=== PATIENT | male | born 1975 | race Caucasian/White ===

== ENCOUNTER 2019-06-19 12:51 | Inpatient (IN) | payer MEDICAID, OTHER ==
[~2019-06-19] VITALS: Ht 154.9 cm; Wt 81.6 kg
[~2019-06-19 12:51] MED LIST: FOLI-49 PO; FURO40TA4 PO; LEVO500T48 PO; MULTI PO; PANT40TA3 PO; PENT400T9 PO; POTA8CAP PO; SPIR50TA PO; THIA100T56 PO
[2019-06-19 12:57] VITALS: Ht 154.9 cm; Wt 81.6 kg
[2019-06-19] MEDS ORDERED: CEFTRIAXONE 1 GM/50 ML (PMX) 50 ML IVPB ONE (13:30)
[2019-06-19] MEDS ORDERED: FUROSEMIDE 20 MG INJ IV ONE (13:30)
[2019-06-19] MEDS ORDERED: LORAZEPAM 2 MG INJ IV ONE (13:30)
[2019-06-19] MEDS ORDERED: IBUPROFEN 600 MG TAB PO ONE (13:30)
--- NOTE | 2019-06-19 14:01 | ERD ---
ER Documentation Chief Complaint Chief Complaint abd distention/pain with alee leg edema x 1 wk; noted yellowish skin HPI This is a 43-year-old man with history of chronic alcoholism brought in by family member for complaints of 1 month increasing lower leg swelling, abdominal distention, and about 2 to 3 days of tactile fevers. He also noticed yellow discoloration of sclera for the last few days. Patient denies blood per rectum or melena, no hematemesis, no complaints of chest pain or shortness of breath. Patient denies sore throat or URI symptoms. Due to the abdominal distention he complains of diffuse abdominal cramping for about 1 month. ROS All systems reviewed and are negative except as per history of present illness. Medications Home Meds No Active Prescriptions or Reported Meds Allergies Allergies: Coded Allergies: No Known Allergy (Unverified , 06/19/19) PMhx/Soc Alcoholism History of Surgery: Yes (Api) Anesthesia Reaction: No Hx Neurological Disorder: No Hx Respiratory Disorders: No Hx Cardiac Disorders: No Hx Psychiatric Problems: No Hx Miscellaneous Medical Probl: Yes (Alcoholism, esophageal varices) Hx Alcohol Use: Yes Hx Substance Use: No Hx Tobacco Use: No Smoking Status: Never smoker FmHx Family History: No diabetes Physical Exam Vitals Vital Signs Date Temp Pulse Resp B/P (MAP) Pulse Ox O2 O2 Flow FiO2 Time Delivery Rate 06/19/19 100.2 131 20 149/92 100 12:57 (111) Physical Exam Const: Well-developed well-nourished man, appears to have mild withdrawals, febrile, otherwise nontoxic in appearance HEENT: Positive jaundice and icterus, no Kernig sign, no cervical spine deformity, pupils equal round reactive to light, normocephalic atraumatic Resp: Clear to auscultation bilaterally Cardio: Tachycardic and regular Abd: Protuberant distended abdomen, nontender, positive hepatomegaly, no guarding or rigidity Ext: No cyanosis, 3+ pitting edema in the lower extremities bilaterally, calves symmetrical Neur: Awake and alert x3, no focal deficits or facial asymmetry, mild upper extremity tremor, gait normal Psych: Normal Mood and Affect Result Diagram: 06/19/19 1339 06/19/19 1339 Results 24 hrs Laboratory Tests Test 06/19/19 13:39 06/19/19 13:46 06/19/19 13:47 White Blood Count 4.7 10^3/ul Red Blood Count 2.79 10^6/ul Hemoglobin 5.9 g/dl Hematocrit 21.5 % Mean Corpuscular Volume 77.1 fl Mean Corpuscular Hemoglobin 21.1 pg Mean Corpuscular 27.4 g/dl Hemoglobin Concent Red Cell Distribution Width 20.6 % Platelet Count 90 10^3/UL Mean Platelet Volume 10.4 fl Immature Granulocytes % 0.600 % Neutrophils % % Segmented Neutrophils % (Manual) 79 % Lymphocytes % % Lymphocytes % (Manual) 11 % Monocytes % % Monocytes % (Manual) 6 % Eosinophils % % Eosinophils % (Manual) 4 % Basophils % % Nucleated Red Blood Cells % 0.0 /100WBC Immature Granulocytes # 0.030 10^3/ul Neutrophils # 10^3/ul Lymphocytes (Manual) 0.5 10^3/ul Lymphocytes # 10^3/ul Monocytes # 10^3/ul Monocytes # (Manual) 0.2 10^3/ul Eosinophils # 10^3/ul Basophils # 10^3/ul Nucleated Red Blood Cells # 10^3/ul Platelet Estimate DECREASED Polychromasia 2+ Hypochromasia 1+ Poikilocytosis 1+ Anisocytosis 1+ Microcytosis 1+ Ovalocytes 1+ Prothrombin Time 25.0 Sec Prothrombin Time Ratio 2.0 INR International 2.26 Normalized Ratio Activated Partial Thromboplast 40.8 Sec Time Sodium Level 137 mmol/L Potassium Level 3.5 mmol/L Chloride Level 108 mmol/L Carbon Dioxide Level 22 mmol/L Anion Gap 7 Blood Urea Nitrogen 8 mg/dl Creatinine 0.64 mg/dl Est Glomerular Filtrat > 60 mL/min Rate mL/min Glucose Level 135 mg/dl Calcium Level 7.4 mg/dl Total Bilirubin 1.7 mg/dl Direct Bilirubin 0.00 mg/dl Indirect Bilirubin 1.7 mg/dl Aspartate Amino 72 IU/L Transf (AST/SGOT) Alanine 43 IU/L Aminotransferase (ALT/SGPT) Alkaline Phosphatase 151 IU/L Ammonia 35 umol/l Troponin I 0.015 ng/ml B-Type Natriuretic Peptide 159 PG/ML Total Protein 6.9 g/dl Albumin 2.2 g/dl Globulin 4.70 g/dl Albumin/Globulin Ratio 0.46 Lipase 287 U/L Ethyl Alcohol Level < 10.0 mg/dl Urine Color SHERRIE Urine Clarity SLIGHTLY CLOUDY Urine pH 5.0 Urine Specific [place] 1.030 Urine Ketones TRACE mg/dL Urine Nitrite NEGATIVE mg/dL Urine Bilirubin 1+ mg/dL Urine Urobilinogen 2+ mg/dL Urine Leukocyte Esterase NEGATIVE Praful/ul Urine Microscopic RBC 15 /HPF Urine Microscopic WBC 5 /HPF Urine Squamous Epithelial Cells FEW /HPF Urine Bacteria FEW /HPF Urine Mucus MANY /HPF Urine Hemoglobin 2+ mg/dL Urine Glucose NEGATIVE mg/dL Urine Total Protein 2+ mg/dl POC Venous Lactate 3.0 mmol/L Current Medications Medications Dose Sig/Mary Start Time Status Last (Trade) Ordered Route PRN Stop Time Admin Dose Reason Admin Lorazepam 0.5 mg ONCE ONCE 06/19/19 DC 06/19/19 (Ativan) IV 13:30 13:43 06/19/19 13:31 Ibuprofen 600 mg ONCE ONCE 06/19/19 DC 06/19/19 (Motrin) PO 13:30 13:43 06/19/19 13:31 Ceftriaxone 50 ml @ ONCE ONCE 06/19/19 DC 06/19/19 Sodium 100 mls/hr IVPB 13:30 13:43 06/19/19 13:59 Furosemide 20 mg ONCE ONCE 06/19/19 DC 06/19/19 (Lasix) IV 13:30 13:43 06/19/19 13:31 Procedures/MDM IV line was established patient was placed on packer sausage and wiener rhythm strip revealed a narrow complex tachycardia at 120 bpm with upright P and T waves. Patient was febrile, blood and urine cultures have been ordered results are pending I will follow-up. I administered Lasix 20 mg IV, ceftriaxone 1 g IV, lorazepam 0.5 mg IV x1, and ibuprofen 600 mg p.o. Chest X-ray 1V Interpreted by me: Soft Tissue: No acute abnormalities Bones: No acute abnormalities Mediastinum/Cardiac Silhouette/Lungs: No acute abnormalities EKG performed, read by me revealed a sinus tachycardia at 113 bpm, normal axis, narrow QRS complex, no concerning ST elevations or depressions noted CBC reveals pancytopenia with severe anemia and a hemoglobin of 5.9, electrolytes are unremarkable, liver function tests revealed mild elevation in bilirubin, troponin negative, urinalysis negative for infection, ammonia level elevated at 35 I ordered transfusion 2 units PRBC IV over 2 hours. Critical Care: Time: 42 minutes, this was time separate from other billable procedures. Treatments/Evaluations: Close monitoring and treatment of unstable vital signs, cardiorespiratory, and neurologic status, while maintaining tight balance of fluid, respiratory, and cardiac interventions. Lactic acid elevated at 3.0 Patient's infectious symptoms have not stabilized and the patient is at risk of rapid decompensation. The patient will be admitted for careful hydration, antibiotic therapy, and infectious source control. SEVERE SEPSIS CRITERIA: Infectious source: Possible SBP End organ damage indicated by: [Lactate > 2.0 mmol/L INR > 1.5 Plt < 100 SEPSIS MANAGEMENT Time of recognition of sepsis: Upon arrival. Time of recognition of severe sepsis: No severe sepsis at this time. Time of recognition of septic shock: No septic shock at this time. 3 HOUR BUNDLE Blood cultures x 2 before broad-spectrum antibiotics: Yes 30 ml/kg NS bolus not given because patient is fluid overloaded Initial lactate 3.0 Repeat lactate pending SEPTIC SHOCK ASSESSMENT: No lactic acid > 4.0 No persistent hypotension (SBP < 90 or 40 mmHg drop, MAP < 65) despite 30 mL/kg IV fluid bolus VOLUME REASSESSMENT FOR SEPTIC SHOCK: Reevaluation Time: 1440 Temp 98.6, pulse 110 bpm, BP 134/86, oxygen saturation 100%, respiratory rate 18 breaths/min and normal Heart tachycardic and regular Lungs no crackles Skin warm & dry Cap Refill less than 2 seconds Peripheral pulses radially present PERSISTENT HYPOTENSION TREATMENT: Comfort care no Central line not Required Vasopressor started not required I considered further perfusion assessment with CVP measurement, SCVO2, bedside ultrasound volume assessment, passive leg raise, trial of further fluid bolus. And proceeded with 30 ml/kg fluid bolus of NSS, broad spectrum antibiotics, and admission. CRITICAL CARE: Critical care time 43 minutes, this was time separate from other billable procedures. Emergent fluid management while maintaining close respiratory support. Provision of immediate and broad-spectrum antibiotic therapy. Simultaneous assessment for possible sources in order to direct targeted therapy. Consideration for invasive and chemical support to prevent cardiopulmonary collapse. Critical care time is independent of procedures performed. Accepting Care Team: Current data and ongoing care discussed. Time: Time of admission Primary Provider: Hospitalist Consulting: GI Outstanding Data: none Departure Diagnosis: Primary Impression: Pancytopenia Additional Impressions: Symptomatic anemia Alcoholism Cirrhosis Hepatic cirrhosis type: alcoholic cirrhosis Ascites presence: with ascites Qualified Codes: K70.31 - Alcoholic cirrhosis of liver with ascites Sepsis Sepsis type: sepsis due to unspecified organism Qualified Codes: A41.9 - Sepsis, unspecified organism Ascites Ascites type: due to alcoholic cirrhosis Qualified Codes: K70.31 - Alcoholic cirrhosis of liver with ascites Fluid overload Hypervolemia type: unspecified Qualified Codes: E87.70 - Fluid overload, unspecified Hyperammonemia Condition: BRAVO Tyson MD Jun 19, 2019 14:01
[2019-06-19] MEDS ORDERED: SOD CHLORIDE 0.9% 250 ML IV* ONE ×3 (16:06→22:02)
[2019-06-19] MEDS ORDERED: SOD CHLORIDE 0.9% 1,000 ML IV SCH (16:15)
[2019-06-19] MEDS ORDERED: HYDROCODONE/APAP (5/325) TAB PO PRN (16:30)
[2019-06-19] MEDS ORDERED: morphine 2 MG INJ IV PRN (16:30)
[2019-06-19] MEDS ORDERED: NACL 0.9% 3 ML SYG IV SCH (16:30)
[2019-06-19] MEDS ORDERED: ONDANSETRON 4 MG INJ IV PRN (16:30)
[2019-06-19] MEDS ORDERED: BISACODYL 10 MG SUPP PR PRN (16:30)
[2019-06-19] MEDS ORDERED: DOCUSATE SODIUM 100 MG CAP PO PRN (16:30)
[2019-06-19] MEDS ORDERED: BISACODYL (EC) 5 MG TAB PO PRN (16:30)
--- NOTE | 2019-06-19 20:11 | HP ---
Date/Time of Note Date/Time of Note DATE: 06/19/19 TIME: 20:06 Assessment/Plan VTE Prophylaxis SCD contraindicated: low risk/ambulating Pharmacological prophylaxis: NA/contraindicated Pharm contraindication: low risk/ambulating Lines/Catheters IV Catheter Type (from Nrsg): Saline Lock Assessment/Plan Hospital Course CC fatigue SENECA progressive dyspnea, fatigue, edema. drinking beer. moved here from recently. no medical care. denies fever, abd pain, or active gi bleed. occ diarrhea. no cough. ER vss/ st PMH etoh varices? depression etoh liver dz PSH none FH tbd SH etoh; no tobacco/ drugs Meds none ROS neuro- 99..; no he cor chest pain positive dyspnea edema pul cough no chest pain gi no vomiting or abdominal pain positive distention gu no abdominal pain dysuria ms fatigue edema No fever psy stable mood without any significant agitation anxiety depression heme no hematochezia melena hematuria con no recent fever or chills Weight? endo no previous diabetes thyroid dysfunction or dyslipidemia PE pallor icterus? no ln, droop reg s1s2 tachy ctab bs dimin; nt; distended edema A/P 1. Anasarca, likely due to progressive liver disease/acute liver failure; albumin and Lasix? 2. Sympt Anemia 3. Etoh 4. Etoh liver dz 5. Coagulopathy 6. Depression? 7. SIRS 8. Portal Htn Result Diagram: 06/19/19 1339 06/19/19 1339 Results 24hrs Laboratory Tests Test 06/19/19 13:39 06/19/19 13:46 06/19/19 13:47 06/19/19 18:36 White Blood Count 4.7 L Red Blood Count 2.79 L Hemoglobin 5.9 *L Hematocrit 21.5 L Mean Corpuscular 77.1 L Volume Mean Corpuscular 21.1 L Hemoglobin Mean Corpuscular 27.4 L Hemoglobin Concen t Red Cell 20.6 H Distribution Width Platelet Count 90 L Mean Platelet 10.4 Volume Immature 0.600 H Granulocytes % Neutrophils % Segmented 79 H Neutrophils % (Manual) Lymphocytes % Lymphocytes % 11 L (Manual) Monocytes % Monocytes % 6 (Manual) Eosinophils % Eosinophils % 4 (Manual) Basophils % Nucleated Red 0.0 Blood Cells % Immature 0.030 Granulocytes # Neutrophils # Lymphocytes 0.5 L (Manual) Lymphocytes # Monocytes # Monocytes # 0.2 L (Manual) Eosinophils # Basophils # Nucleated Red Blood Cells # Platelet Estimate DECREASED Polychromasia 2+ Hypochromasia 1+ Poikilocytosis 1+ Anisocytosis 1+ Microcytosis 1+ Ovalocytes 1+ Prothrombin Time 25.0 H Prothrombin Time 2.0 Ratio INR International 2.26 Normalized Ratio Activated 40.8 H Partial Thrombopl ast Time Sodium Level 137 Potassium Level 3.5 Chloride Level 108 Carbon Dioxide 22 Level Anion Gap 7 Blood Urea 8 Nitrogen Creatinine 0.64 Est Glomerular > 60 Filtrat Rate mL/min Glucose Level 135 Calcium Level 7.4 L Total Bilirubin 1.7 H Direct Bilirubin 0.00 Indirect 1.7 H Bilirubin Aspartate Amino 72 H Transf (AST/SGOT) Alanine 43 Aminotransferase (ALT/SGPT) Alkaline 151 H Phosphatase Ammonia 35 H Troponin I 0.015 B-Type 159 H Natriuretic Peptide Total Protein 6.9 Albumin 2.2 L Globulin 4.70 H Albumin/Globulin 0.46 Ratio Lipase 287 Ethyl Alcohol < 10.0 H Level Urine Color SHERRIE Urine Clarity SLIGHTLY CLOUDY A Urine pH 5.0 Urine Specific 1.030 [place] Urine Ketones TRACE A Urine Nitrite NEGATIVE Urine Bilirubin 1+ H Urine 2+ H Urobilinogen Urine Leukocyte NEGATIVE Esterase Urine Microscopic 15 H RBC Urine Microscopic 5 WBC Urine Squamous FEW Epithelial Cells Urine Bacteria FEW A Urine Mucus MANY A Urine Hemoglobin 2+ H Urine Glucose NEGATIVE Urine Total 2+ H Protein POC Venous 3.0 *H Lactate Lactic Acid Level 1.8 HPI/ROS Admit Date/Time Admit Date/Time PMH/Family/Social Past Medical History Medications Current Medications Sodium Chloride 1,000 ml @ 75 mls/hr [id number] IV ; Start 06/19/19 at 16:15 IV Flush (NS 3 ml) 3 ml PER PROTOCOL IV ; Start 06/19/19 at 16:30 Ondansetron HCl (Zofran Inj) 4 mg Q6H PRN IV NAUSEA/VOMITING; Start 06/19/19 at 16:30 Acetaminophen (Tylenol Tab) 650 mg Q6H PRN PO .PAIN 1-3 OR TEMP; Start 06/19/19 at 16:30 Acetaminophen/ Hydrocodone Bitart ([place] (5/325)) 1 tab Q6H PRN PO .MOD PAIN 4- 6; Start 06/19/19 at 16:30 Morphine Sulfate (morphine) 2 mg Q4H PRN IV .SEVERE PAIN 7-10; Start 06/19/19 at 16:30 Docusate Sodium (Colace) 100 mg Q12H PRN PO .CONSTIPATION; Start 06/19/19 at 16:30 Bisacodyl (Dulcolax) 5 mg DAILY PRN PO .CONSTIPATION; Start 06/19/19 at 16:30 Bisacodyl (Dulcolax Supp) 10 mg DAILY PRN [place] .CONSTIPATION; Start 06/19/19 at 16:30 Pantoprazole (Protonix Iv) 40 mg DAILY@06 IV ; Start 06/20/19 at 06:00 Coded Allergies: No Known Allergy (Unverified , 06/19/19) Social History Smoking Status: Never smoker Exam/Review of Systems Vital Signs Vitals Vital Signs Date Temp Pulse Resp B/P (MAP) Pulse Ox O2 O2 Flow FiO2 Time Delivery Rate 06/19/19 98.5 85 22 133/86 100 Room Air 18:30 (102) RAGHU ALFRED MD Jun 19, 2019 20:11
[2019-06-19] MEDS ORDERED: THIAMINE 100 MG TAB PO ONE (20:30)
[2019-06-19] MEDS ORDERED: LORAZEPAM 2 MG INJ IV PRN (20:30)
[2019-06-19] MEDS ORDERED: FOLIC ACID 1 MG TAB PO ONE (20:30)
[2019-06-19 21:40] VITALS: BP 139/90; PULSE 97; RESP 18
[2019-06-19] MEDS ORDERED: FUROSEMIDE 40 MG INJ IV ONE (22:30)
[2019-06-19] MEDS ORDERED: PHYTONADIONE 10 MG/ML INJ IM ONE (22:30)
[2019-06-19] MEDS: MULTIVITAMINS THERAPEUTIC TAB PO SCH (23:05)
[2019-06-20] MEDS: CEFTRIAXONE 2 GM/50 ML (PMX) 50 ML IVPB SCH ×2 (00:01→22:43)
[2019-06-20 02:01] VITALS: BP 125/76; PULSE 90; RESP 18
[2019-06-20] MEDS: PANTOPRAZOLE 40 MG INJ IV SCH (05:51)
[2019-06-20 07:40] VITALS: BP 135/68; PULSE 92; RESP 18
[2019-06-20] MEDS: THIAMINE 100 MG TAB PO SCH (08:41)
[2019-06-20] MEDS: FOLIC ACID 1 MG TAB PO SCH (08:42)
[2019-06-20] MEDS: FUROSEMIDE 40 MG INJ IV SCH ×3 (08:42→20:50)
[2019-06-20] MEDS: MULTIVITAMINS THERAPEUTIC TAB PO SCH (08:44)
[2019-06-20] MEDS ORDERED: LIDOCAINE 1% (MPF) 5 ML VIAL ONE (14:15)
[2019-06-20 14:51] VITALS: BP 146/80; PULSE 97; RESP 18
--- NOTE | 2019-06-20 15:12 | PN ---
Date/Time of Note Date/Time of Note DATE: 06/20/19 TIME: 15:10 Assessment/Plan VTE Prophylaxis [place] [facility] risk: 3 SCD applied ([place] [facility] Yes SCD contraindicated: low risk/ambulating Pharmacological prophylaxis: NA/contraindicated Pharm contraindication: blood coag disorder Lines/Catheters [facility] Saline Lock Assessment/Plan Hospital Course A/P 1. Anasarca, likely due to progressive liver disease/acute liver failure; try albumin and Lasix? Vs Bumex/nephrology consult 2. Sympt Anemia, transfused 3. Etoh, B1 4. Etoh liver dz. may need GI consult 5. Coagulopathy, status post FFP vitamin K 6. Depression? 7. SIRS 8. Portal Htn; bb soon 9. History of varices? Subjective: No distress fever status post paracentesis Objective: Vital signs stable PE pallor icterus. reg s1s2 ctab bs dimin; nt; distended edema Result Diagram: 06/20/19 0551 06/20/19 0550 Results 24hrs Laboratory Tests Test 06/19/19 18:36 06/19/19 22:03 06/19/19 23:10 06/20/19 05:50 Lactic Acid Level 1.8 1.5 White Blood Count 4.3 L Red Blood Count 3.03 L Hemoglobin 6.9 *L Hematocrit 24.0 L Mean Corpuscular 79.2 L Volume Mean Corpuscular 22.8 L Hemoglobin Mean Corpuscular 28.8 L Hemoglobin Concen t Red Cell 19.6 H Distribution Width Platelet Count 79 L Mean Platelet Volume Immature 0.500 H Granulocytes % Neutrophils % 62.8 Lymphocytes % 18.7 Monocytes % 12.4 H Eosinophils % 5.4 Basophils % 0.2 Nucleated Red 0.0 Blood Cells % Immature 0.020 Granulocytes # Neutrophils # 2.7 Lymphocytes # 0.8 Monocytes # 0.5 Eosinophils # 0.2 Basophils # 0.0 Nucleated Red 0.0 Blood Cells # Prothrombin Time 26.1 H Prothrombin Time 2.0 Ratio INR International 2.39 Normalized Ratio Sodium Level 140 Potassium Level 3.0 L Chloride Level 110 Carbon Dioxide 25 Level Anion Gap 5 Blood Urea 11 Nitrogen Creatinine 0.62 Est Glomerular > 60 Filtrat Rate mL/min Glucose Level 92 # Calcium Level 7.3 L Magnesium Level 1.4 L Total Bilirubin 2.5 H Direct Bilirubin 0.00 Indirect 2.5 H Bilirubin Aspartate Amino 57 H Transf (AST/SGOT) Alanine 41 Aminotransferase (ALT/SGPT) Alkaline 152 H Phosphatase Total Protein 5.9 #L Albumin 1.9 L Globulin 4.00 H Albumin/Globulin 0.47 Ratio Alpha Fetoprotein 2.20 Thyroid 5.790 H Stimulating Hormone (TSH) Test 06/20/19 05:51 06/20/19 06:11 White Blood Count 4.3 L Red Blood Count 3.32 L Hemoglobin 7.8 L Hematocrit 25.8 L Mean Corpuscular 77.7 L Volume Mean Corpuscular 23.5 L Hemoglobin Mean Corpuscular 30.2 L Hemoglobin Concen t Red Cell 19.2 H Distribution Width Platelet Count 75 L Mean Platelet Volume Immature 0.500 H Granulocytes % Neutrophils % 62.0 Lymphocytes % 18.1 Monocytes % 13.6 H Eosinophils % 5.6 Basophils % 0.2 Nucleated Red 0.0 Blood Cells % Immature 0.020 Granulocytes # Neutrophils # 2.6 Lymphocytes # 0.8 Monocytes # 0.6 Eosinophils # 0.2 Basophils # 0.0 Nucleated Red 0.0 Blood Cells # Hemoglobin A1c 4.8 Phosphorus Level 4.0 Hepatitis B NEGATIVE Surface Antigen Hepatitis B Core NEGATIVE Total Antibody Hepatitis C NEGATIVE Antibody Lab Scanned BLOOD TRANSFUSIO Report N Exam/Review of Systems Exam Vitals Vital Signs Date Temp Pulse Resp B/P (MAP) Pulse Ox O2 O2 Flow FiO2 Time Delivery Rate 06/20/19 98.3 97 18 146/80 100 Room Air 14:51 (102) Intake and Output 06/19/19 06/19/19 06/20/19 1515:00 23:00 07:00 IntakeIntake Total 350 ml 800 ml BalanceBalance 350 ml 800 ml Results Results 24hrs Laboratory Tests Test 06/19/19 18:36 06/19/19 22:03 06/19/19 23:10 06/20/19 05:50 Lactic Acid Level 1.8 1.5 White Blood Count 4.3 L Red Blood Count 3.03 L Hemoglobin 6.9 *L Hematocrit 24.0 L Mean Corpuscular 79.2 L Volume Mean Corpuscular 22.8 L Hemoglobin Mean Corpuscular 28.8 L Hemoglobin Concen t Red Cell 19.6 H Distribution Width Platelet Count 79 L Mean Platelet Volume Immature 0.500 H Granulocytes % Neutrophils % 62.8 Lymphocytes % 18.7 Monocytes % 12.4 H Eosinophils % 5.4 Basophils % 0.2 Nucleated Red 0.0 Blood Cells % Immature 0.020 Granulocytes # Neutrophils # 2.7 Lymphocytes # 0.8 Monocytes # 0.5 Eosinophils # 0.2 Basophils # 0.0 Nucleated Red 0.0 Blood Cells # Prothrombin Time 26.1 H Prothrombin Time 2.0 Ratio INR International 2.39 Normalized Ratio Sodium Level 140 Potassium Level 3.0 L Chloride Level 110 Carbon Dioxide 25 Level Anion Gap 5 Blood Urea 11 Nitrogen Creatinine 0.62 Est Glomerular > 60 Filtrat Rate mL/min Glucose Level 92 # Calcium Level 7.3 L Magnesium Level 1.4 L Total Bilirubin 2.5 H Direct Bilirubin 0.00 Indirect 2.5 H Bilirubin Aspartate Amino 57 H Transf (AST/SGOT) Alanine 41 Aminotransferase (ALT/SGPT) Alkaline 152 H Phosphatase Total Protein 5.9 #L Albumin 1.9 L Globulin 4.00 H Albumin/Globulin 0.47 Ratio Alpha Fetoprotein 2.20 Thyroid 5.790 H Stimulating Hormone (TSH) Test 06/20/19 05:51 06/20/19 06:11 White Blood Count 4.3 L Red Blood Count 3.32 L Hemoglobin 7.8 L Hematocrit 25.8 L Mean Corpuscular 77.7 L Volume Mean Corpuscular 23.5 L Hemoglobin Mean Corpuscular 30.2 L Hemoglobin Concen t Red Cell 19.2 H Distribution Width Platelet Count 75 L Mean Platelet Volume Immature 0.500 H Granulocytes % Neutrophils % 62.0 Lymphocytes % 18.1 Monocytes % 13.6 H Eosinophils % 5.6 Basophils % 0.2 Nucleated Red 0.0 Blood Cells % Immature 0.020 Granulocytes # Neutrophils # 2.6 Lymphocytes # 0.8 Monocytes # 0.6 Eosinophils # 0.2 Basophils # 0.0 Nucleated Red 0.0 Blood Cells # Hemoglobin A1c 4.8 Phosphorus Level 4.0 Hepatitis B NEGATIVE Surface Antigen Hepatitis B Core NEGATIVE Total Antibody Hepatitis C NEGATIVE Antibody Lab Scanned BLOOD TRANSFUSIO Report N Medications Medication Current Medications IV Flush (NS 3 ml) 3 ml PER PROTOCOL IV ; Start 06/19/19 at 16:30 Ondansetron HCl (Zofran Inj) 4 mg Q6H PRN IV NAUSEA/VOMITING; Start 06/19/19 at 16:30 Acetaminophen (Tylenol Tab) 650 mg Q6H PRN PO .PAIN 1-3 OR TEMP; Start 06/19/19 at 16:30 Acetaminophen/ Hydrocodone Bitart ([place] (5/325)) 1 tab Q6H PRN PO .MOD PAIN 4- 6; Start 06/19/19 at 16:30 Morphine Sulfate (morphine) 2 mg Q4H PRN IV .SEVERE PAIN 7-10; Start 06/19/19 at 16:30 Docusate Sodium (Colace) 100 mg Q12H PRN PO .CONSTIPATION; Start 06/19/19 at 16:30 Bisacodyl (Dulcolax) 5 mg DAILY PRN PO .CONSTIPATION; Start 06/19/19 at 16:30 Bisacodyl (Dulcolax Supp) 10 mg DAILY PRN [place] .CONSTIPATION; Start 06/19/19 at 16:30 Pantoprazole (Protonix Iv) 40 mg DAILY@06 IV Last administered on 06/20/19at 05:51; Admin Dose 40 MG; Start 06/20/19 at 06:00 Lorazepam (Ativan) 1 mg Q2H PRN IV CONTROL WITHDRAWAL SYMPTOMS; Start 06/19/19 at 20:30 Thiamine HCl (Vitamin B1) 100 mg DAILY PO Last administered on 06/20/19at 08:41; Admin Dose 100 MG; Start 06/20/19 at 09:00 Folic Acid (Folic Acid) 1 mg DAILY PO Last administered on 06/20/19at 08:42; Admin Dose 1 MG; Start 06/20/19 at 09:00 Multivitamins Therapeutic (Theragran) 1 tab DAILY PO Last administered on 06/20/19at 08:44; Admin Dose 1 TAB; Start 06/19/19 at 20:30 Furosemide (Lasix) 40 mg TID IV Last administered on 06/20/19at 14:26; Admin Dose 40 MG; Start 06/20/19 at 09:00 Ceftriaxone Sodium 50 ml @ 100 mls/hr Q24H IVPB Last administered on 06/20/19at 00:01; Admin Dose 100 MLS/HR; Start 06/19/19 at 22:30 RAGHU ALFRED MD Jun 20, 2019 15:12
[2019-06-20] MEDS: POTASSIUM CHLORIDE 20 MEQ POWDER FOR ORAL SOLN PO SCH (15:36)
[2019-06-20] MEDS ORDERED: MAGNESIUM SULFATE 3 GM in DEXTROSE 5% 100 ML IVPB ONE (16:30)
[2019-06-20 20:00] VITALS: BP 124/76; PULSE 100; RESP 15
[2019-06-20] MEDS: ACETAMINOPHEN 325 MG TAB PO PRN (20:51)
[2019-06-20] MEDS: NADOLOL 40 MG TAB PO SCH (20:51)
[2019-06-20] MEDS ORDERED: SPIRONOLACTONE 50 MG TAB PO SCH (21:00)
[2019-06-21 02:00] VITALS: BP 101/60; PULSE 59; RESP 19
[2019-06-21] MEDS: PANTOPRAZOLE 40 MG INJ IV SCH (06:17)
[2019-06-21 07:58] VITALS: BP 117/72; PULSE 81; RESP 18
[2019-06-21] MEDS: POTASSIUM CHLORIDE 20 MEQ POWDER FOR ORAL SOLN PO SCH (09:22)
[2019-06-21] MEDS: MULTIVITAMINS THERAPEUTIC TAB PO SCH (09:22)
[2019-06-21] MEDS: THIAMINE 100 MG TAB PO SCH (09:22)
[2019-06-21] MEDS: FOLIC ACID 1 MG TAB PO SCH (09:22)
[2019-06-21] MEDS: NADOLOL 40 MG TAB PO SCH ×2 (09:23→21:13)
[2019-06-21] MEDS: FUROSEMIDE 40 MG INJ IV SCH ×3 (09:23→21:14)
--- NOTE | 2019-06-21 10:28 | CONS ---
Assessment/Plan Assessment/Plan Hospital Course (Demo Recall) Summary Assessment and Plan: Assessment: Severe anemia Presumed alcoholic liver cirrhosis with sequela -LAst drink 3-7 day sago- query ETOH hepatitis DF 48.9 Thrombocytopenia Coagulopathy Abnormal UA Plan: Clear liquid diet today- NPO after 06/22/19 0800 PETAR, ASMA, AMA Increase Aldactone to twice daily-close observation of renal function EGD/Colonoscopy tentatively tomorrow - with plan to correct/improve coagulopathy Endoscopy - risks/benefits/alternatives/indications of procedure and s edation/anesthesia discussed with patient who states understanding and gives informed consent to proceed. Abnormal UA- pt on ABX- will start pentoxifylline given elevated DF, as alternative to steroid, for possible underlying infection Patient seen in collaboration with Dr. Vasques CC: HOME VASQUES MD ; Consultation Date/Type/Reason Admit Date/Time Date of Consultation: Jun 21, 2019 Type of Consult GI Reason for Consultation Anemia, liver cirrhosis Date/Time of Note DATE: 06/21/19 TIME: 10:09 Hx of Present Illness This is a 43-year-old male with past medical history of excessive alcohol use, HTN who presented to the hospital with complaints of increased abdominal girth, and fatigue. Work-up was completed in the ED including abdominal ultrasound showing cirrhotic liver with ascites, splenomegaly and recanalization umbilical vein compatible with portal hypertension. No mass. The main portal vein is patent. Labs obtained are consistent with liver cirrhosis including thrombocytopenia as well as coagulopathy INR today is 2.27, mild transaminitis AST slightly higher than ALT and indirect hyperbilirubinemia with a bilirubin of 2.0. Additionally on admission patient's hemoglobin was 5.9 he is status post FFP and packed cell transfusion. Hemoglobin today was 8.4. Hepatitis serology for hepatitis B and C were obtained and are both negative. Patient status post paracentesis with removal of 2.3 L of serous fluid negative for SBP at time evaluation patient is sitting up in bed states he is feeling better and he den ies overt signs of GI bleed. After obtaining history liver cirrhosis is likely secondary to excessive alcohol use. However we will obtain autoimmune labs as well. Review of Systems: A 12 system, review was conducted and is negative except as noted in the HPI or here. Past Medical History Home Meds No Active Prescriptions or Reported Meds Medications Current Medications IV Flush (NS 3 ml) 3 ml PER PROTOCOL IV ; Start 06/19/19 at 16:30 Ondansetron HCl (Zofran Inj) 4 mg Q6H PRN IV NAUSEA/VOMITING; Start 06/19/19 at 16:30 Acetaminophen (Tylenol Tab) 650 mg Q6H PRN PO .PAIN 1-3 OR TEMP Last administered on 06/20/19at 20:51; Admin Dose 650 MG; Start 06/19/19 at 16:30 Acetaminophen/ Hydrocodone Bitart ([place] (5/325)) 1 tab Q6H PRN PO .MOD PAIN 4- 6; Start 06/19/19 at 16:30 Morphine Sulfate (morphine) 2 mg Q4H PRN IV .SEVERE PAIN 7-10; Start 06/19/19 at 16:30 Docusate Sodium (Colace) 100 mg Q12H PRN PO .CONSTIPATION; Start 06/19/19 at 16:30 Bisacodyl (Dulcolax) 5 mg DAILY PRN PO .CONSTIPATION; Start 06/19/19 at 16:30 Bisacodyl (Dulcolax Supp) 10 mg DAILY PRN [place] .CONSTIPATION; Start 06/19/19 at 16:30 Pantoprazole (Protonix Iv) 40 mg DAILY@06 IV Last administered on 06/21/19at 06:17; Admin Dose 40 MG; Start 06/20/19 at 06:00 Lorazepam (Ativan) 1 mg Q2H PRN IV CONTROL WITHDRAWAL SYMPTOMS; Start 06/19/19 at 20:30 Thiamine HCl (Vitamin B1) 100 mg DAILY PO Last administered on 06/21/19 09:22; Admin Dose 100 MG; Start 06/20/19 at 09:00 Folic Acid (Folic Acid) 1 mg DAILY PO Last administered on 06/21/19 09:22; Admin Dose 1 MG; Start 06/20/19 at 09:00 Multivitamins Therapeutic (Theragran) 1 tab DAILY PO Last administered on 06/21/19 09:22; Admin Dose 1 TAB; Start 06/19/19 at 20:30 Furosemide (Lasix) 40 mg TID IV Last administered on 06/21/19at 09:23; Admin Dose 40 MG; Start 06/20/19 at 09:00 Ceftriaxone Sodium 50 ml @ 100 mls/hr Q24H IVPB Last administered on 06/20/19at 22:43; Admin Dose 100 MLS/HR; Start 06/19/19 at 22:30 Nadolol (Corgard) 20 mg BID PO Last administered on 06/21/19at 09:23; Admin Dose 20 MG; Start 06/20/19 at 21:00 Potassium Chloride (Potassium Chloride Pwd/Soln) 40 meq BID PO Last administered on 06/21/19at 09:22; Admin Dose 40 MEQ; Start 06/20/19 at 15:30; Stop 06/21/19 at 15:29 Spironolactone (Aldactone) 50 mg HS PO Last administered on 06/20/19at 20:50; Admin Dose 50 MG; Start 06/20/19 at 21:00 Allergies: Coded Allergies: No Known Allergy (Unverified , 06/19/19) Social History Smoking Status: Never smoker Exam/Review of Systems Exam Vitals Vital Signs Date Temp Pulse Resp B/P (MAP) Pulse Ox O2 O2 Flow FiO2 Time Delivery Rate 06/21/19 98.5 81 18 117/72 98 Room Air 07:58 (87) Intake and Output 06/20/19 06/20/19 06/21/19 1515:00 23:00 07:00 IntakeIntake Total 1176 ml 850 ml OutputOutput Total 600 ml BalanceBalance 1176 ml 250 ml Exam PHYSICAL EXAMINATION: GENERAL:Alert & oriented x 3, in no acute distress SKIN: No lesions HEAD: Normocephalic, atraumatic, no tenderness. EYES: Pupils equal reactive to light, no discharge. EARS/NOSE AND THROAT: Ears normal, nose normal. NECK: Supple, no masses. CHEST: Inspection within normal limits. CARDIOVASCULAR: Heart: Regular rate and rhythm. RESPIRATORY: Lungs clear to auscultation GASTROINTESTINAL AND LIVER: Abdomen: Soft, non tenderness, distended, no hernias, no masses, no organomegaly, ascites, no guarding, no rebound tenderness, normoactive bowel sounds. Rectal: Deferred. EXTREMITIES: No cyanosis, clubbing or edema. Results Result Diagram: 06/21/1924 06/21/19 0524 Results 24hrs Laboratory Tests Test 06/20/19 13:50 06/21/19 05:24 06/21/19 05:54 Body Fluid Type ASCITES Body Fluid Volume 25.0 Body Fluid Color YELLOW Body Fluid Appearance SLIGHTLY HAZY Body Fluid WBC 78 Body Fluid RBC (Auto) 0 Body Fluid Polynuclear 24.4 WBCs (%) Body Fluid Mononuclear 75.6 Cells % Auto Body Fluid Other Cells Body Fluid Total Protein < 2.0 White Blood Count 5.2 # Red Blood Count 3.50 L Hemoglobin 8.4 L Hematocrit 27.5 L Mean Corpuscular Volume 78.6 L Mean Corpuscular Hemoglobin 24.0 L Mean Corpuscular 30.5 L Hemoglobin Concent Red Cell Distribution Width 19.2 H Platelet Count 77 L Mean Platelet Volume Immature Granulocytes % 0.400 Neutrophils % 57.7 Lymphocytes % 22.0 Monocytes % 13.0 H Eosinophils % 6.7 Basophils % 0.2 Nucleated Red Blood Cells % 0.0 Immature Granulocytes # 0.020 Neutrophils # 3.0 Lymphocytes # 1.2 Monocytes # 0.7 Eosinophils # 0.4 Basophils # 0.0 Nucleated Red Blood Cells # 0.0 Prothrombin Time 25.1 H Prothrombin Time Ratio 2.0 INR International 2.27 Normalized Ratio Sodium Level 138 Potassium Level 3.0 L Chloride Level 104 Carbon Dioxide Level 29 Anion Gap 5 Blood Urea Nitrogen 9 Creatinine 0.74 Est Glomerular Filtrat > 60 Rate mL/min Glucose Level 97 Calcium Level 7.0 L Phosphorus Level 3.8 Magnesium Level 1.7 Total Bilirubin 2.0 H Direct Bilirubin 0.00 Indirect Bilirubin 2.0 H Aspartate Amino 48 H Transf (AST/SGOT) Alanine 41 Aminotransferase (ALT/SGPT) Alkaline Phosphatase 117 Total Protein 5.9 L Albumin 2.0 L Globulin 3.90 H Albumin/Globulin Ratio 0.51 Free Thyroxine 1.95 H Total Triiodothyronine 0.60 L Lab Scanned Report BLOOD TRANSFUSION Medications Medication Current Medications IV Flush (NS 3 ml) 3 ml PER PROTOCOL IV ; Start 06/19/19 at 16:30 Ondansetron HCl (Zofran Inj) 4 mg Q6H PRN IV NAUSEA/VOMITING; Start 06/19/19 at 16:30 Acetaminophen (Tylenol Tab) 650 mg Q6H PRN PO .PAIN 1-3 OR TEMP Last administered on 06/20/19at 20:51; Admin Dose 650 MG; Start 06/19/19 at 16:30 Acetaminophen/ Hydrocodone Bitart ([place] (5/325)) 1 tab Q6H PRN PO .MOD PAIN 4- 6; Start 06/19/19 at 16:30 Morphine Sulfate (morphine) 2 mg Q4H PRN IV .SEVERE PAIN 7-10; Start 06/19/19 at 16:30 Docusate Sodium (Colace) 100 mg Q12H PRN PO .CONSTIPATION; Start 06/19/19 at 16:30 Bisacodyl (Dulcolax) 5 mg DAILY PRN PO .CONSTIPATION; Start 06/19/19 at 16:30 Bisacodyl (Dulcolax Supp) 10 mg DAILY PRN [place] .CONSTIPATION; Start 06/19/19 at 16:30 Pantoprazole (Protonix Iv) 40 mg DAILY@06 IV Last administered on 06/21/19 06:17; Admin Dose 40 MG; Start 06/20/19 at 06:00 Lorazepam (Ativan) 1 mg Q2H PRN IV CONTROL WITHDRAWAL SYMPTOMS; Start 06/19/19 at 20:30 Thiamine HCl (Vitamin B1) 100 mg DAILY PO Last administered on 06/21/19 09:22; Admin Dose 100 MG; Start 06/20/19 at 09:00 Folic Acid (Folic Acid) 1 mg DAILY PO Last administered on 06/21/19 09:22; Admin Dose 1 MG; Start 06/20/19 at 09:00 Multivitamins Therapeutic (Theragran) 1 tab DAILY PO Last administered on 06/21/19 09:22; Admin Dose 1 TAB; Start 06/19/19 at 20:30 Furosemide (Lasix) 40 mg TID IV Last administered on 06/21/19 09:23; Admin Dose 40 MG; Start 06/20/19 at 09:00 Ceftriaxone Sodium 50 ml @ 100 mls/hr Q24H IVPB Last administered on 06/20/19at 22:43; Admin Dose 100 MLS/HR; Start 06/19/19 at 22:30 Nadolol (Corgard) 20 mg BID PO Last administered on 06/21/19 09:23; Admin Dose 20 MG; Start 06/20/19 at 21:00 Potassium Chloride (Potassium Chloride Pwd/Soln) 40 meq BID PO Last administered on 06/21/19 09:22; Admin Dose 40 MEQ; Start 06/20/19 at 15:30; Stop 06/21/19 at 15:29 Spironolactone (Aldactone) 50 mg HS PO Last administered on 06/20/19at 20:50; Admin Dose 50 MG; Start 06/20/19 at 21:00 NIKKO GODOY Jun 21, 2019 10:19
[2019-06-21] MEDS ORDERED: BISACODYL (EC) 5 MG TAB PO ONE (10:30)
[2019-06-21] MEDS: PHYTONADIONE 10 MG/ML INJ SC SCH (11:18)
[2019-06-21 14:00] VITALS: BP 126/70; PULSE 79; RESP 18
--- NOTE | 2019-06-21 15:30 | PN ---
Date/Time of Note Date/Time of Note DATE: 06/21/19 TIME: 15:19 Assessment/Plan VTE Prophylaxis Risk score (from Ns)>0 risk: 3 SCD applied (from Ns): Yes Pharmacological prophylaxis: NA/contraindicated Pharm contraindication: blood coag disorder Lines/Catheters [facility]from [facility] Saline Lock Assessment/Plan Hospital Course Subjective: Patient had paracentesis and 2 units PRBC transfusion performed yesterday. States he has less abdominal pain now. Tolerating diet. Seen by GI team earlier today. Objective: Vital signs-see below PE Gen: lying in bed, NAD HEENT: pallor icterus. CV: reg s1s2 Res; ctab GI: bs dimin; nt; distended M/S: + edema A/P: 43-year-old male who presented with: 1. Anasarca- likely due to progressive liver disease/acute liver failure; again status post paracentesis with 2.3 L removed yesterday -For now continue 3 times daily Lasix and spironolactone. 2. Sympt Anemia- transfused a total of 3 units during this admission, hemoglobin today 8.4 -Monitor CBC daily 3. Etoh-counseled on cessation 4. Etoh liver dz again appreciate GI consult -Plan for EGD colonoscopy tomorrow, follow-up post procedure results and recommendations 5. Coagulopathy- status post FFP vitamin K earlier this admission. Today INR in the mid 2 range -Again ordered for more FFP tomorrow morning, then planning for EGD colonoscopy afterwards 6. Depression?-Monitor 8. Portal Htn; bb soon Result Diagram: 06/21/1952306/21/19 0524 Results 24hrs Laboratory Tests Test 06/21/19 05:24 06/21/19 05:54 White Blood Count 5.2 # Red Blood Count 3.50 L Hemoglobin 8.4 L Hematocrit 27.5 L Mean Corpuscular Volume 78.6 L Mean Corpuscular Hemoglobin 24.0 L Mean Corpuscular Hemoglobin Concent 30.5 L Red Cell Distribution Width 19.2 H Platelet Count 77 L Mean Platelet Volume Immature Granulocytes % 0.400 Neutrophils % 57.7 Lymphocytes % 22.0 Monocytes % 13.0 H Eosinophils % 6.7 Basophils % 0.2 Nucleated Red Blood Cells % 0.0 Immature Granulocytes # 0.020 Neutrophils # 3.0 Lymphocytes # 1.2 Monocytes # 0.7 Eosinophils # 0.4 Basophils # 0.0 Nucleated Red Blood Cells # 0.0 Prothrombin Time 25.1 H Prothrombin Time Ratio 2.0 INR International Normalized Ratio 2.27 Sodium Level 138 Potassium Level 3.0 L Chloride Level 104 Carbon Dioxide Level 29 Anion Gap 5 Blood Urea Nitrogen 9 Creatinine 0.74 Est Glomerular Filtrat Rate mL/min > 60 Glucose Level 97 Calcium Level 7.0 L Phosphorus Level 3.8 Magnesium Level 1.7 Total Bilirubin 2.0 H Direct Bilirubin 0.00 Indirect Bilirubin 2.0 H Aspartate Amino Transf (AST/SGOT) 48 H Alanine Aminotransferase (ALT/SGPT) 41 Alkaline Phosphatase 117 Total Protein 5.9 L Albumin 2.0 L Globulin 3.90 H Albumin/Globulin Ratio 0.51 Free Thyroxine 1.95 H Total Triiodothyronine 0.60 L Lab Scanned Report BLOOD TRANSFUSION Exam/Review of Systems Exam Vitals Vital Signs Date Temp Pulse Resp B/P (MAP) Pulse Ox O2 O2 Flow FiO2 Time Delivery Rate 06/21/19 97.9 79 18 126/70 98 Room Air 14:00 (88) Intake and Output 06/20/19 06/20/19 06/21/19 1515:00 23:00 07:00 IntakeIntake Total 1176 ml 850 ml OutputOutput Total 600 ml BalanceBalance 1176 ml 250 ml Results Results 24hrs Laboratory Tests Test 06/21/19 05:24 06/21/19 05:54 White Blood Count 5.2 # Red Blood Count 3.50 L Hemoglobin 8.4 L Hematocrit 27.5 L Mean Corpuscular Volume 78.6 L Mean Corpuscular Hemoglobin 24.0 L Mean Corpuscular Hemoglobin Concent 30.5 L Red Cell Distribution Width 19.2 H Platelet Count 77 L Mean Platelet Volume Immature Granulocytes % 0.400 Neutrophils % 57.7 Lymphocytes % 22.0 Monocytes % 13.0 H Eosinophils % 6.7 Basophils % 0.2 Nucleated Red Blood Cells % 0.0 Immature Granulocytes # 0.020 Neutrophils # 3.0 Lymphocytes # 1.2 Monocytes # 0.7 Eosinophils # 0.4 Basophils # 0.0 Nucleated Red Blood Cells # 0.0 Prothrombin Time 25.1 H Prothrombin Time Ratio 2.0 INR International Normalized Ratio 2.27 Sodium Level 138 Potassium Level 3.0 L Chloride Level 104 Carbon Dioxide Level 29 Anion Gap 5 Blood Urea Nitrogen 9 Creatinine 0.74 Est Glomerular Filtrat Rate mL/min > 60 Glucose Level 97 Calcium Level 7.0 L Phosphorus Level 3.8 Magnesium Level 1.7 Total Bilirubin 2.0 H Direct Bilirubin 0.00 Indirect Bilirubin 2.0 H Aspartate Amino Transf (AST/SGOT) 48 H Alanine Aminotransferase (ALT/SGPT) 41 Alkaline Phosphatase 117 Total Protein 5.9 L Albumin 2.0 L Globulin 3.90 H Albumin/Globulin Ratio 0.51 Free Thyroxine 1.95 H Total Triiodothyronine 0.60 L Lab Scanned Report BLOOD TRANSFUSION Medications Medication Current Medications IV Flush (NS 3 ml) 3 ml PER PROTOCOL IV ; Start 06/19/19 at 16:30 Ondansetron HCl (Zofran Inj) 4 mg Q6H PRN IV NAUSEA/VOMITING; Start 06/19/19 at 16:30 Acetaminophen (Tylenol Tab) 650 mg Q6H PRN PO .PAIN 1-3 OR TEMP Last administered on 06/20/19at 20:51; Admin Dose 650 MG; Start 06/19/19 at 16:30 Acetaminophen/ Hydrocodone Bitart ([place] (5/325)) 1 tab Q6H PRN PO .MOD PAIN 4- 6; Start 06/19/19 at 16:30 Morphine Sulfate (morphine) 2 mg Q4H PRN IV .SEVERE PAIN 7-10; Start 06/19/19 at 16:30 Docusate Sodium (Colace) 100 mg Q12H PRN PO .CONSTIPATION; Start 06/19/19 at 16:30 Bisacodyl (Dulcolax) 5 mg DAILY PRN PO .CONSTIPATION; Start 06/19/19 at 16:30 Bisacodyl (Dulcolax Supp) 10 mg DAILY PRN [place] .CONSTIPATION; Start 06/19/19 at 16:30 Pantoprazole (Protonix Iv) 40 mg DAILY@06 IV Last administered on 06/21/19at 06:17; Admin Dose 40 MG; Start 06/20/19 at 06:00 Lorazepam (Ativan) 1 mg Q2H PRN IV CONTROL WITHDRAWAL SYMPTOMS; Start 06/19/19 at 20:30 Thiamine HCl (Vitamin B1) 100 mg DAILY PO Last administered on 06/21/19at 09:22; Admin Dose 100 MG; Start 06/20/19 at 09:00 Folic Acid (Folic Acid) 1 mg DAILY PO Last administered on 06/21/19 09:22; Admin Dose 1 MG; Start 06/20/19 at 09:00 Multivitamins Therapeutic (Theragran) 1 tab DAILY PO Last administered on 06/21/19 09:22; Admin Dose 1 TAB; Start 06/19/19 at 20:30 Furosemide (Lasix) 40 mg TID IV Last administered on 06/21/19 13:50; Admin Dose 40 MG; Start 06/20/19 at 09:00 Ceftriaxone Sodium 50 ml @ 100 mls/hr Q24H IVPB Last administered on 06/20/19 22:43; Admin Dose 100 MLS/HR; Start 06/19/19 at 22:30 Nadolol (Corgard) 20 mg BID PO Last administered on 06/21/19 09:23; Admin Dose 20 MG; Start 06/20/19 at 21:00 Potassium Chloride (Potassium Chloride Pwd/Soln) 40 meq BID PO Last administered on 06/21/19 09:22; Admin Dose 40 MEQ; Start 06/20/19 at 15:30; Stop 06/21/19 at 15:29 Spironolactone (Aldactone) 50 mg BID PO ; Start 06/21/19 at 21:00 Phytonadione (Vitamin K) 10 mg DAILY SC Last administered on 06/21/19 11:18; Admin Dose 10 MG; Start 06/21/19 at 10:30; Stop 06/23/19 at 11:00 Magnesium Citrate (Citroma) 300 ml ONCE ONCE PO ; Start 06/21/19 at 17:30; Stop 06/21/19 at 17:31 Polyethylene Glycol (Miralax) 119 gm ONCE ONCE PO ; Start 06/21/19 at 18:30; Stop 06/21/19 at 18:31 Polyethylene Glycol (Miralax) 119 gm 2ND DOSE (GI PREP) ONCE PO ; Start 06/22/19 at 06:00; Stop 06/22/19 at 06:01 Bisacodyl (Dulcolax) 10 mg 2ND DOSE (GI PREP) ONCE PO ; Start 06/22/19 at 08:00; Stop 06/22/19 at 08:01 BENJY BRAUN Jun 21, 2019 15:30
[2019-06-21] MEDS ORDERED: MAGNESIUM CITRATE 300 ML BTL PO ONE (17:30)
[2019-06-21] MEDS ORDERED: POLYETHYLENE GLYCOL 3350 119 GM POWDER PO ONE (18:30)
[2019-06-21 19:36] VITALS: BP 133/81; PULSE 75; RESP 16
[2019-06-21] MEDS ORDERED: SPIRONOLACTONE 50 MG TAB PO SCH (21:00)
[2019-06-21] MEDS: PENTOXIFYLLINE (SR) 400 MG TAB PO SCH (21:12)
[2019-06-21] MEDS: SPIRONOLACTONE 50 MG TAB PO SCH (21:13)
[2019-06-21] MEDS: POTASSIUM CHLORIDE 50 ML IVPB SCH ×2 (21:22→23:44)
[2019-06-21] MEDS: CEFTRIAXONE 2 GM/50 ML (PMX) 50 ML IVPB SCH (22:25)
[2019-06-21] MEDS: ACETAMINOPHEN 325 MG TAB PO PRN (22:25)
[2019-06-22] VITALS (12 sets, daily range): BP systolic 99–145; BP diastolic 57–80; PULSE 68–76; RESP 14–19
[2019-06-22] MEDS: POTASSIUM CHLORIDE 50 ML IVPB SCH (01:06)
[2019-06-22] MEDS: PANTOPRAZOLE 40 MG INJ IV SCH (05:46)
[2019-06-22] MEDS ORDERED: POLYETHYLENE GLYCOL 3350 119 GM POWDER PO ONE (06:00)
[2019-06-22] MEDS ORDERED: BISACODYL (EC) 5 MG TAB PO ONE (08:00)
[2019-06-22] MEDS: PENTOXIFYLLINE (SR) 400 MG TAB PO SCH ×3 (09:00→20:11)
[2019-06-22] MEDS: SPIRONOLACTONE 50 MG TAB PO SCH ×2 (09:00→20:11)
[2019-06-22] MEDS: FUROSEMIDE 40 MG INJ IV SCH ×3 (09:00→20:12)
[2019-06-22] MEDS: MULTIVITAMINS THERAPEUTIC TAB PO SCH (09:00)
[2019-06-22] MEDS: THIAMINE 100 MG TAB PO SCH (09:00)
[2019-06-22] MEDS: NADOLOL 40 MG TAB PO SCH ×2 (09:00→20:12)
[2019-06-22] MEDS: FOLIC ACID 1 MG TAB PO SCH (12:29)
[2019-06-22] MEDS: PHYTONADIONE 10 MG/ML INJ SC SCH (12:58)
--- NOTE | 2019-06-22 13:30 | PN ---
Date/Time of Note Date/Time of Note DATE: 06/22/19 TIME: 13:27 Assessment/Plan VTE Prophylaxis Risk score (from [facility])>0 risk: 3 SCD applied (from [facility]): Yes Pharmacological prophylaxis: NA/contraindicated Pharm contraindication: blood coag disorder Lines/Catheters [facility] Saline Lock Assessment/Plan Hospital Course Subjective: Patient presently n.p.o., getting FFP. Awaiting EGD and colonoscopy for later today. No acute events overnight. Objective: Vital signs-see below PE Gen: lying in bed, NAD HEENT: pallor icterus. CV: reg s1s2 Res; ctab GI: bs dimin; nt; distended M/S: + edema A/P: 43-year-old male who presented with: 1. Anasarca- likely due to progressive liver disease/acute liver failure; again status post paracentesis with 2.3 L removed 2 days ago. -For now continue 3 times daily Lasix and spironolactone. 2. Sympt Anemia- transfused a total of 3 units during this admission, hemoglobin today 9.0 -Monitor CBC daily 3. Etoh-counseled on cessation 4. Etoh liver dz again appreciate GI consult -Plan for EGD colonoscopy today, follow-up post procedure results and recommendations 5. Coagulopathy- status post FFP vitamin K earlier this admission. Today INR still in the mid 2 range, and getting more FFP right now -Again after FFP given, planning later today for EGD colonoscopy afterwards 6. Depression?-Monitor 8. Portal Htn; bb soon Result Diagram: 06/22/19 0536 06/22/19 0536 Results 24hrs Laboratory Tests Test 06/22/19 05:36 White Blood Count 5.9 Red Blood Count 3.78 L Hemoglobin 9.0 L Hematocrit 30.2 L Mean Corpuscular Volume 79.9 L Mean Corpuscular Hemoglobin 23.8 L Mean Corpuscular Hemoglobin Concent 29.8 L Red Cell Distribution Width 19.9 H Platelet Count 62 L Mean Platelet Volume Immature Granulocytes % 0.700 H Neutrophils % 63.3 Lymphocytes % 19.1 Monocytes % 12.8 H Eosinophils % 3.9 Basophils % 0.2 Nucleated Red Blood Cells % 0.0 Immature Granulocytes # 0.040 H Neutrophils # 3.7 Lymphocytes # 1.1 Monocytes # 0.8 Eosinophils # 0.2 Basophils # 0.0 Nucleated Red Blood Cells # 0.0 Prothrombin Time 24.0 H Prothrombin Time Ratio 1.9 INR International Normalized Ratio 2.14 Sodium Level 138 Potassium Level 3.6 Chloride Level 107 Carbon Dioxide Level 25 Anion Gap 6 Blood Urea Nitrogen 11 Creatinine 0.62 Est Glomerular Filtrat Rate mL/min > 60 Glucose Level 84 Calcium Level 7.4 L Total Bilirubin 2.0 H Direct Bilirubin 0.00 Indirect Bilirubin 2.0 H Aspartate Amino Transf (AST/SGOT) 52 H Alanine Aminotransferase (ALT/SGPT) 37 Alkaline Phosphatase 108 Total Protein 6.1 Albumin 2.0 L Globulin 4.10 H Albumin/Globulin Ratio 0.48 Exam/Review of Systems Exam Vitals Vital Signs Date Temp Pulse Resp B/P (MAP) Pulse Ox O2 O2 Flow FiO2 Time Delivery Rate 06/22/19 98.1 68 18 105/58 99 07:38 (74) 06/22/19 Room Air 02:04 Intake and Output 06/21/19 06/21/19 06/22/19 1515:00 23:00 07:00 IntakeIntake Total 1000 ml 100 ml BalanceBalance 1000 ml 100 ml Results Results 24hrs Laboratory Tests Test 06/22/19 05:36 White Blood Count 5.9 Red Blood Count 3.78 L Hemoglobin 9.0 L Hematocrit 30.2 L Mean Corpuscular Volume 79.9 L Mean Corpuscular Hemoglobin 23.8 L Mean Corpuscular Hemoglobin Concent 29.8 L Red Cell Distribution Width 19.9 H Platelet Count 62 L Mean Platelet Volume Immature Granulocytes % 0.700 H Neutrophils % 63.3 Lymphocytes % 19.1 Monocytes % 12.8 H Eosinophils % 3.9 Basophils % 0.2 Nucleated Red Blood Cells % 0.0 Immature Granulocytes # 0.040 H Neutrophils # 3.7 Lymphocytes # 1.1 Monocytes # 0.8 Eosinophils # 0.2 Basophils # 0.0 Nucleated Red Blood Cells # 0.0 Prothrombin Time 24.0 H Prothrombin Time Ratio 1.9 INR International Normalized Ratio 2.14 Sodium Level 138 Potassium Level 3.6 Chloride Level 107 Carbon Dioxide Level 25 Anion Gap 6 Blood Urea Nitrogen 11 Creatinine 0.62 Est Glomerular Filtrat Rate mL/min > 60 Glucose Level 84 Calcium Level 7.4 L Total Bilirubin 2.0 H Direct Bilirubin 0.00 Indirect Bilirubin 2.0 H Aspartate Amino Transf (AST/SGOT) 52 H Alanine Aminotransferase (ALT/SGPT) 37 Alkaline Phosphatase 108 Total Protein 6.1 Albumin 2.0 L Globulin 4.10 H Albumin/Globulin Ratio 0.48 Medications Medication Current Medications IV Flush (NS 3 ml) 3 ml PER PROTOCOL IV ; Start 06/19/19 at 16:30 Ondansetron HCl (Zofran Inj) 4 mg Q6H PRN IV NAUSEA/VOMITING; Start 06/19/19 at 16:30 Acetaminophen (Tylenol Tab) 650 mg Q6H PRN PO .PAIN 1-3 OR TEMP Last administered on 06/21/19at 22:25; Admin Dose 650 MG; Start 06/19/19 at 16:30 Acetaminophen/ Hydrocodone Bitart ([place] (5/325)) 1 tab Q6H PRN PO .MOD PAIN 4- 6; Start 06/19/19 at 16:30 Morphine Sulfate (morphine) 2 mg Q4H PRN IV .SEVERE PAIN 7-10; Start 06/19/19 at 16:30 Docusate Sodium (Colace) 100 mg Q12H PRN PO .CONSTIPATION; Start 06/19/19 at 16:30 Bisacodyl (Dulcolax) 5 mg DAILY PRN PO .CONSTIPATION; Start 06/19/19 at 16:30 Bisacodyl (Dulcolax Supp) 10 mg DAILY PRN [place] .CONSTIPATION; Start 06/19/19 at 16:30 Pantoprazole (Protonix Iv) 40 mg DAILY@06 IV Last administered on 06/22/19at 05:46; Admin Dose 40 MG; Start 06/20/19 at 06:00 Lorazepam (Ativan) 1 mg Q2H PRN IV CONTROL WITHDRAWAL SYMPTOMS; Start 06/19/19 at 20:30 Thiamine HCl (Vitamin B1) 100 mg DAILY PO Last administered on 06/21/19at 09:22; Admin Dose 100 MG; Start 06/20/19 at 09:00 Folic Acid (Folic Acid) 1 mg DAILY PO Last administered on 06/21/19at 09:22; Admin Dose 1 MG; Start 06/20/19 at 09:00 Multivitamins Therapeutic (Theragran) 1 tab DAILY PO Last administered on 06/21/19at 09:22; Admin Dose 1 TAB; Start 06/19/19 at 20:30 Furosemide (Lasix) 40 mg TID IV Last administered on 06/21/19 21:14; Admin Dose 40 MG; Start 06/20/19 at 09:00 Ceftriaxone Sodium 50 ml @ 100 mls/hr Q24H IVPB Last administered on 06/21/19 22:25; Admin Dose 100 MLS/HR; Start 06/19/19 at 22:30 Nadolol (Corgard) 20 mg BID PO Last administered on 06/21/19 21:13; Admin Dose 20 MG; Start 06/20/19 at 21:00 Spironolactone (Aldactone) 50 mg BID PO Last administered on 06/21/19 21:13; Admin Dose 50 MG; Start 06/21/19 at 21:00 Phytonadione (Vitamin K) 10 mg DAILY SC Last administered on 06/22/19at 12:58; Admin Dose 10 MG; Start 06/21/19 at 10:30; Stop 06/23/19 at 11:00 Pentoxifylline (Trental) 400 mg TID PO Last administered on 06/21/19at 21:12; Admin Dose 400 MG; Start 06/21/19 at 21:00 BENJY BRAUN Jun 22, 2019 13:29
--- NOTE | 2019-06-22 17:42 | PREAC ---
Date/Time of Note Date/Time of Note DATE: 06/22/19 TIME: 17:40 Anesthesia Eval and Record Evaluation Time Pre-Procedure Interview DATE: 06/22/19 TIME: 17:39 Age 43 Sex male NPO: 8 hrs Preoperative diagnosis anemia Planned procedure EGD / colonoscopy Past Medical History Past Medical History: Includes Hepatic: Alcohol abuse, Other (whit disease) GI: Obesity Heme: Anemia Surgery & Anesthesia Issues No known issue Meds Anticoagulation: No Beta Ajith within 24 hr: No Reason Beta Ajith not given: Pt. not on B-Ajiht No Active Prescriptions or Reported Meds Current Medications IV Flush (NS 3 ml) 3 ml PER PROTOCOL IV ; Start 06/19/19 at 16:30 Ondansetron HCl (Zofran Inj) 4 mg Q6H PRN IV NAUSEA/VOMITING; Start 06/19/19 at 16:30 Acetaminophen (Tylenol Tab) 650 mg Q6H PRN PO .PAIN 1-3 OR TEMP Last administered on 06/21/19at 22:25; Admin Dose 650 MG; Start 06/19/19 at 16:30 Acetaminophen/ Hydrocodone Bitart ([place] (5/325)) 1 tab Q6H PRN PO .MOD PAIN 4- 6; Start 06/19/19 at 16:30 Morphine Sulfate (morphine) 2 mg Q4H PRN IV .SEVERE PAIN 7-10; Start 06/19/19 at 16:30 Docusate Sodium (Colace) 100 mg Q12H PRN PO .CONSTIPATION; Start 06/19/19 at 16:30 Bisacodyl (Dulcolax) 5 mg DAILY PRN PO .CONSTIPATION; Start 06/19/19 at 16:30 Bisacodyl (Dulcolax Supp) 10 mg DAILY PRN [place] .CONSTIPATION; Start 06/19/19 at 16:30 Pantoprazole (Protonix Iv) 40 mg DAILY@06 IV Last administered on 06/22/19at 05:46; Admin Dose 40 MG; Start 06/20/19 at 06:00 Lorazepam (Ativan) 1 mg Q2H PRN IV CONTROL WITHDRAWAL SYMPTOMS; Start 06/19/19 at 20:30 Thiamine HCl (Vitamin B1) 100 mg DAILY PO Last administered on 06/21/19at 09:22; Admin Dose 100 MG; Start 06/20/19 at 09:00 Folic Acid (Folic Acid) 1 mg DAILY PO Last administered on 06/21/19 09:22; Admin Dose 1 MG; Start 06/20/19 at 09:00 Multivitamins Therapeutic (Theragran) 1 tab DAILY PO Last administered on 06/21/19 09:22; Admin Dose 1 TAB; Start 06/19/19 at 20:30 Furosemide (Lasix) 40 mg TID IV Last administered on 06/21/19 21:14; Admin Dose 40 MG; Start 06/20/19 at 09:00 Ceftriaxone Sodium 50 ml @ 100 mls/hr Q24H IVPB Last administered on 06/21/19 22:25; Admin Dose 100 MLS/HR; Start 06/19/19 at 22:30 Nadolol (Corgard) 20 mg BID PO Last administered on 06/21/19 21:13; Admin Dose 20 MG; Start 06/20/19 at 21:00 Spironolactone (Aldactone) 50 mg BID PO Last administered on 06/21/19 21:13; Admin Dose 50 MG; Start 06/21/19 at 21:00 Phytonadione (Vitamin K) 10 mg DAILY SC Last administered on 06/22/19at 12:58; Admin Dose 10 MG; Start 06/21/19 at 10:30; Stop 06/23/19 at 11:00 Pentoxifylline (Trental) 400 mg TID PO Last administered on 06/21/19 21:12; Admin Dose 400 MG; Start 06/21/19 at 21:00 Meds reviewed: Yes Allergies Coded Allergies: No Known Allergy (Unverified , 06/19/19) Allergies Reviewed: Yes Labs/Studies Labs Reviewed: Reviewed by anesthesiologist Result Diagram: 06/22/19 1504 06/22/19 0536 Laboratory Tests 06/22/19 05:36 06/22/19 15:04 test: N/A Studies: CXR (Small left pleural effusion with adjacent air space disease. Correlate for aspiration or pneumonia.) Pre-procedure Exam Last vitals Vital Signs Date Temp Pulse Resp B/P (MAP) Pulse Ox O2 O2 Flow FiO2 Time Delivery Rate 06/22/19 98.5 70 14 145/79 100 Room Air 17:16 (101) Airway: Adequate mouth opening Mallampati: Mallampati II Teeth: Normal Lung: Normal Heart: Normal ASA Physical Status ASA physical status: 3 Emergency: None Planned Anesthetic General/MAC: MAC Pre-operative Attestations Prior to commencing anesthesia and surgery, the patient was re-evaluated, there was verification of: *The patient's identity *The results of appropriate recent lab work and preoperative vital signs *The above evaluation not changing prior to induction *Anesthetic plan, risk benefits, alternative and complications discussed with patient/family; questions answered; patient/family understands, accepts and wishes to proceed. MISTY DIXON Jun 22, 2019 17:42
[2019-06-22] MEDS ORDERED: FENTAnyl 50 MCG/ML VIAL ONE ×2 (18:37→19:33)
[2019-06-22] MEDS ORDERED: LIDOCAINE 2% (SDV) 5 ML INJ ONE (18:37)
[2019-06-22] MEDS ORDERED: PROPOFOL 20 ML ONE (18:37)
--- NOTE | 2019-06-22 19:03 | PAC ---
Date/Time of Note Date/Time of Note DATE: 06/22/19 TIME: 19:03 Post-Anesthesia Notes Post-Anesthesia Note Last documented vital signs Vital Signs Date Temp Pulse Resp B/P (MAP) Pulse Ox O2 O2 Flow FiO2 Time Delivery Rate 06/22/19 98.5 70 14 145/79 100 Room Air 17:16 (101) Activity: WNL Respiratory function: WNL Cardiovascular function: WNL Mental status: Baseline Pain reasonably controlled: Yes Hydration appropriate: Yes Nausea/Vomiting absent: Yes Yovanny Barrios M.D. Jun 22, 2019 19:03
[2019-06-22] MEDS ORDERED: FENTAnyl 50 MCG/ML VIAL IV PRN (19:30)
[2019-06-22] MEDS: CEFTRIAXONE 2 GM/50 ML (PMX) 50 ML IVPB SCH (21:53)
[2019-06-23 02:00] VITALS: BP 103/57; PULSE 76; RESP 17
[2019-06-23] MEDS: PANTOPRAZOLE 40 MG INJ IV SCH (05:29)
[2019-06-23 08:00] VITALS: BP 97/53; PULSE 77; RESP 20
[2019-06-23 09:27] VITALS: BP 110/65; PULSE 75
[2019-06-23] MEDS: SPIRONOLACTONE 50 MG TAB PO SCH ×2 (09:29→22:37)
[2019-06-23] MEDS: PENTOXIFYLLINE (SR) 400 MG TAB PO SCH ×3 (09:30→22:37)
[2019-06-23] MEDS: THIAMINE 100 MG TAB PO SCH (09:30)
[2019-06-23] MEDS: FOLIC ACID 1 MG TAB PO SCH (09:30)
[2019-06-23] MEDS: MULTIVITAMINS THERAPEUTIC TAB PO SCH (09:30)
[2019-06-23] MEDS: PHYTONADIONE 10 MG/ML INJ SC SCH (09:56)
[2019-06-23] MEDS ORDERED: POTASSIUM CHLORIDE (SR) 20 MEQ TAB PO STA (09:58)
[2019-06-23] MEDS: FUROSEMIDE 40 MG INJ IV SCH ×2 (10:01→13:11)
[2019-06-23] MEDS: NADOLOL 40 MG TAB PO SCH (11:00)
--- NOTE | 2019-06-23 11:14 | PN ---
Date/Time of Note Date/Time of Note DATE: 06/23/19 TIME: 11:12 Assessment/Plan VTE Prophylaxis Risk score (from Ns)>0 risk: 3 SCD applied (from Nsg): Yes Pharmacological prophylaxis: other Lines/Catheters [facility] Saline Lock Urinary Cath still in place: No Assessment/Plan Hospital Course Summary Assessment and Plan: Assessment: Severe anemia EGD 06/22/2019 Grade 2/4 esophageal varices. No intervention. Mild gastritis. Rule out H. pylori infection, biopsies obtained. Otherwise normal EGD Colonoscopy 06/22/2019 Normal colonoscopy to cecum. Moderate-sized internal hemorrhoids. Presumed alcoholic liver cirrhosis with sequela -Last drink 3-7 day sago- query ETOH hepatitis DF 48.9 -Discussed alcohol cessation Thrombocytopenia Coagulopathy Abnormal UA Plan: Repeat EGD in 3 months or sooner if evidence of bleeding presents High-fiber diet Repeat colonoscopy in 10 years Continue pentoxifylline x28 days Nadolol for EV prophylactics and diuretic therapy Pt to f/u with GI after discharge Patient seen in collaboration with Dr. Vasques Subjective: Course reviewed with nursing staff Patient interviewed and examined All labs, imaging and other results reviewed The patient sitting in bed, feels well. Discussed results of EGD and colonoscopy patient verbalized understanding and. Discussed with patient need to follow with GI after discharge and repeat EGD in 3 months patient verbalized understanding is agreeable No complaints of nausea/vomiting, hematochezia, melena or abdominal pain. Patient tolerating diet well. Exam PHYSICAL EXAMINATION: GENERAL:Alert & oriented x 3, in no acute distress SKIN: No lesions HEAD: Normocephalic, atraumatic, no tenderness. EYES: Pupils equal reactive to light, no discharge. EARS/NOSE AND THROAT: Ears normal, nose normal. NECK: Supple, no masses. CHEST: Inspection within normal limits. CARDIOVASCULAR: Heart: Regular rate and rhythm. RESPIRATORY: Lungs clear to auscultation GASTROINTESTINAL AND LIVER: Abdomen: Soft, non tenderness, distended, no hernias, no masses, no organomegaly, ascites, no guarding, no rebound tenderness, normoactive bowel sounds. Rectal: Deferred. EXTREMITIES: No cyanosis, clubbing or edema. Result Diagram: 06/23/19 0603 06/23/19 0603 Results 24hrs Laboratory Tests Test 06/22/19 15:04 06/23/19 06:03 06/23/19 06:10 Platelet Count 75 L 62 L Prothrombin Time 19.5 H Prothrombin Time Ratio 1.5 INR International 1.64 Normalized Ratio Activated Partial Thromboplast 37.3 H Time Thrombin Time 18.8 White Blood Count 4.8 Red Blood Count 3.31 L Hemoglobin 8.0 L Hematocrit 26.5 L Mean Corpuscular Volume 80.1 L Mean Corpuscular Hemoglobin 24.2 L Mean Corpuscular 30.2 L Hemoglobin Concent Red Cell Distribution Width 20.1 H Mean Platelet Volume Immature Granulocytes % 0.400 Neutrophils % 59.3 Lymphocytes % 19.0 Monocytes % 16.1 H Eosinophils % 4.8 Basophils % 0.4 Nucleated Red Blood Cells % 0.0 Immature Granulocytes # 0.020 Neutrophils # 2.9 Lymphocytes # 0.9 Monocytes # 0.8 Eosinophils # 0.2 Basophils # 0.0 Nucleated Red Blood Cells # 0.0 Sodium Level 138 Potassium Level 3.2 L Chloride Level 108 Carbon Dioxide Level 24 Anion Gap 6 Blood Urea Nitrogen 12 Creatinine 0.75 Est Glomerular Filtrat > 60 Rate mL/min Glucose Level 109 Calcium Level 7.3 L Lab Scanned Report BLOOD TRANSFUSION Exam/Review of Systems Exam Vitals Vital Signs Date Temp Pulse Resp B/P (MAP) Pulse Ox O2 O2 Flow FiO2 Time Delivery Rate 06/23/19 75 110/65 09:27 (80) 06/23/19 98.6 20 98 08:00 06/22/19 Room Air 19:42 Intake and Output 06/22/19 06/22/19 06/23/19 1515:00 23:00 07:00 IntakeIntake Total 50 ml BalanceBalance 50 ml Results Results 24hrs Laboratory Tests Test 06/22/19 15:04 06/23/19 06:03 06/23/19 06:10 Platelet Count 75 L 62 L Prothrombin Time 19.5 H Prothrombin Time Ratio 1.5 INR International 1.64 Normalized Ratio Activated Partial Thromboplast 37.3 H Time Thrombin Time 18.8 White Blood Count 4.8 Red Blood Count 3.31 L Hemoglobin 8.0 L Hematocrit 26.5 L Mean Corpuscular Volume 80.1 L Mean Corpuscular Hemoglobin 24.2 L Mean Corpuscular 30.2 L Hemoglobin Concent Red Cell Distribution Width 20.1 H Mean Platelet Volume Immature Granulocytes % 0.400 Neutrophils % 59.3 Lymphocytes % 19.0 Monocytes % 16.1 H Eosinophils % 4.8 Basophils % 0.4 Nucleated Red Blood Cells % 0.0 Immature Granulocytes # 0.020 Neutrophils # 2.9 Lymphocytes # 0.9 Monocytes # 0.8 Eosinophils # 0.2 Basophils # 0.0 Nucleated Red Blood Cells # 0.0 Sodium Level 138 Potassium Level 3.2 L Chloride Level 108 Carbon Dioxide Level 24 Anion Gap 6 Blood Urea Nitrogen 12 Creatinine 0.75 Est Glomerular Filtrat > 60 Rate mL/min Glucose Level 109 Calcium Level 7.3 L Lab Scanned Report BLOOD TRANSFUSION Medications Medication Current Medications IV Flush (NS 3 ml) 3 ml PER PROTOCOL IV ; Start 06/19/19 at 16:30 Ondansetron HCl (Zofran Inj) 4 mg Q6H PRN IV NAUSEA/VOMITING; Start 06/19/19 at 16:30 Acetaminophen (Tylenol Tab) 650 mg Q6H PRN PO .PAIN 1-3 OR TEMP Last administered on 06/21/19at 22:25; Admin Dose 650 MG; Start 06/19/19 at 16:30 Acetaminophen/ Hydrocodone Bitart ([place] (5/325)) 1 tab Q6H PRN PO .MOD PAIN 4- 6; Start 06/19/19 at 16:30 Morphine Sulfate (morphine) 2 mg Q4H PRN IV .SEVERE PAIN 7-10; Start 06/19/19 at 16:30 Docusate Sodium (Colace) 100 mg Q12H PRN PO .CONSTIPATION; Start 06/19/19 at 16:30 Bisacodyl (Dulcolax) 5 mg DAILY PRN PO .CONSTIPATION; Start 06/19/19 at 16:30 Bisacodyl (Dulcolax Supp) 10 mg DAILY PRN [place] .CONSTIPATION; Start 06/19/19 at 16:30 Pantoprazole (Protonix Iv) 40 mg DAILY@06 IV Last administered on 06/23/19at 05:29; Admin Dose 40 MG; Start 06/20/19 at 06:00 Lorazepam (Ativan) 1 mg Q2H PRN IV CONTROL WITHDRAWAL SYMPTOMS; Start 06/19/19 at 20:30 Thiamine HCl (Vitamin B1) 100 mg DAILY PO Last administered on 06/23/19at 09:30; Admin Dose 100 MG; Start 06/20/19 at 09:00 Folic Acid (Folic Acid) 1 mg DAILY PO Last administered on 06/23/19 09:30; Admin Dose 1 MG; Start 06/20/19 at 09:00 Multivitamins Therapeutic (Theragran) 1 tab DAILY PO Last administered on 06/23/19 09:30; Admin Dose 1 TAB; Start 06/19/19 at 20:30 Furosemide (Lasix) 40 mg TID IV Last administered on 06/23/19 10:01; Admin Dose 40 MG; Start 06/20/19 at 09:00 Ceftriaxone Sodium 50 ml @ 100 mls/hr Q24H IVPB Last administered on 06/22/19 21:53; Admin Dose 100 MLS/HR; Start 06/19/19 at 22:30 Spironolactone (Aldactone) 50 mg BID PO Last administered on 06/23/19 09:29; Admin Dose 50 MG; Start 06/21/19 at 21:00 Pentoxifylline (Trental) 400 mg TID PO Last administered on 06/23/19 09:30; Admin Dose 400 MG; Start 06/21/19 at 21:00 Nadolol (Corgard) 20 mg DAILY PO ; Start 06/23/19 at 11:00 NIKKO GODOY Jun 23, 2019 11:14
[2019-06-23 13:10] VITALS: BP 111/69; PULSE 75
[2019-06-23 14:52] VITALS: BP 119/68; PULSE 74; RESP 18
--- NOTE | 2019-06-23 17:40 | PN ---
Date/Time of Note Date/Time of Note DATE: 06/23/19 TIME: 17:40 Assessment/Plan VTE [place] [facility] [place]: 3 [place] [facility] [place] Yes Pharmacological prophylaxis: NA/contraindicated Pharm contraindication: blood coag disorder Lines/Catheters [facility] Saline Lock Urinary Cath still in place: No Assessment/Plan Hospital Course Subjective: Patient had EGD and colonoscopy performed yesterday. No acute events overnight, tolerating diet. Objective: Vital signs-see below PE Gen: lying in bed, NAD HEENT: pallor icterus. CV: reg s1s2 Res; ctab GI: bs dimin; nt; distended M/S: + edema EGD 06/22/2019 Grade 2/4 esophageal varices. No intervention. Mild gastritis. Rule out H. pylori infection, biopsies obtained. Otherwise normal EGD Colonoscopy 06/22/2019 Normal colonoscopy to cecum. Moderate-sized internal hemorrhoids. A/P: 43-year-old male who presented with: 1. Anasarca-slowly improving, likely due to progressive liver disease/acute liver failure; again status post paracentesis with 2.3 L removed 3 days ago. -For now continue spironolactone, will switch Lasix to p.o. twice daily now 2. Sympt Anemia- transfused a total of 3 units during this admission, hemoglobin presently stable -Monitor CBC daily 3. Etoh-counseled on cessation 4. Etoh liver dz again appreciate GI consult -Again status post EGD colonoscopy yesterday, continue Trental and Protonix for now 5. Coagulopathy- status post FFP vitamin K earlier this admission. -No signs of bleeding, monitor for now 6. Depression?-Monitor 8. Portal Htn; bb cautious use Dispo: Likely home in 24 hours if shortness of breath symptoms and overall coagulopathy and anasarca are improving. Result Diagram: 06/23/19 0603 06/23/19 0603 Results 24hrs Laboratory Tests Test 06/23/19 06:03 06/23/19 06:10 White Blood Count 4.8 Red Blood Count 3.31 L Hemoglobin 8.0 L Hematocrit 26.5 L Mean Corpuscular Volume 80.1 L Mean Corpuscular Hemoglobin 24.2 L Mean Corpuscular Hemoglobin Concent 30.2 L Red Cell Distribution Width 20.1 H Platelet Count 62 L Mean Platelet Volume Immature Granulocytes % 0.400 Neutrophils % 59.3 Lymphocytes % 19.0 Monocytes % 16.1 H Eosinophils % 4.8 Basophils % 0.4 Nucleated Red Blood Cells % 0.0 Immature Granulocytes # 0.020 Neutrophils # 2.9 Lymphocytes # 0.9 Monocytes # 0.8 Eosinophils # 0.2 Basophils # 0.0 Nucleated Red Blood Cells # 0.0 Sodium Level 138 Potassium Level 3.2 L Chloride Level 108 Carbon Dioxide Level 24 Anion Gap 6 Blood Urea Nitrogen 12 Creatinine 0.75 Est Glomerular Filtrat Rate mL/min > 60 Glucose Level 109 Calcium Level 7.3 L Lab Scanned Report BLOOD TRANSFUSION Exam/Review of Systems Exam Vitals Vital Signs Date Temp Pulse Resp B/P (MAP) Pulse Ox O2 O2 Flow FiO2 Time Delivery Rate 06/23/19 98.0 74 18 119/68 96 14:52 (85) 06/22/19 Room Air 19:42 Intake and Output 06/22/19 06/22/19 06/23/19 1515:00 23:00 07:00 IntakeIntake Total 50 ml BalanceBalance 50 ml Results Results 24hrs Laboratory Tests Test 06/23/19 06:03 06/23/19 06:10 White Blood Count 4.8 Red Blood Count 3.31 L Hemoglobin 8.0 L Hematocrit 26.5 L Mean Corpuscular Volume 80.1 L Mean Corpuscular Hemoglobin 24.2 L Mean Corpuscular Hemoglobin Concent 30.2 L Red Cell Distribution Width 20.1 H Platelet Count 62 L Mean Platelet Volume Immature Granulocytes % 0.400 Neutrophils % 59.3 Lymphocytes % 19.0 Monocytes % 16.1 H Eosinophils % 4.8 Basophils % 0.4 Nucleated Red Blood Cells % 0.0 Immature Granulocytes # 0.020 Neutrophils # 2.9 Lymphocytes # 0.9 Monocytes # 0.8 Eosinophils # 0.2 Basophils # 0.0 Nucleated Red Blood Cells # 0.0 Sodium Level 138 Potassium Level 3.2 L Chloride Level 108 Carbon Dioxide Level 24 Anion Gap 6 Blood Urea Nitrogen 12 Creatinine 0.75 Est Glomerular Filtrat Rate mL/min > 60 Glucose Level 109 Calcium Level 7.3 L Lab Scanned Report BLOOD TRANSFUSION Medications Medication Current Medications IV Flush (NS 3 ml) 3 ml PER PROTOCOL IV ; Start 06/19/19 at 16:30 Ondansetron HCl (Zofran Inj) 4 mg Q6H PRN IV NAUSEA/VOMITING; Start 06/19/19 at 16:30 Acetaminophen (Tylenol Tab) 650 mg Q6H PRN PO .PAIN 1-3 OR TEMP Last administered on 06/21/19at 22:25; Admin Dose 650 MG; Start 06/19/19 at 16:30 Acetaminophen/ Hydrocodone Bitart ([place] (5/325)) 1 tab Q6H PRN PO .MOD PAIN 4- 6; Start 06/19/19 at 16:30 Morphine Sulfate (morphine) 2 mg Q4H PRN IV .SEVERE PAIN 7-10; Start 06/19/19 at 16:30 Docusate Sodium (Colace) 100 mg Q12H PRN PO .CONSTIPATION; Start 06/19/19 at 16:30 Bisacodyl (Dulcolax) 5 mg DAILY PRN PO .CONSTIPATION; Start 06/19/19 at 16:30 Bisacodyl (Dulcolax Supp) 10 mg DAILY PRN [place] .CONSTIPATION; Start 06/19/19 at 16:30 Pantoprazole (Protonix Iv) 40 mg DAILY@06 IV Last administered on 06/23/19at 05:29; Admin Dose 40 MG; Start 06/20/19 at 06:00 Lorazepam (Ativan) 1 mg Q2H PRN IV CONTROL WITHDRAWAL SYMPTOMS; Start 06/19/19 at 20:30 Thiamine HCl (Vitamin B1) 100 mg DAILY PO Last administered on 06/23/19 09:30; Admin Dose 100 MG; Start 06/20/19 at 09:00 Folic Acid (Folic Acid) 1 mg DAILY PO Last administered on 06/23/19 09:30; Admin Dose 1 MG; Start 06/20/19 at 09:00 Multivitamins Therapeutic (Theragran) 1 tab DAILY PO Last administered on 06/23/19 09:30; Admin Dose 1 TAB; Start 06/19/19 at 20:30 Ceftriaxone Sodium 50 ml @ 100 mls/hr Q24H IVPB Last administered on 06/22/19at 21:53; Admin Dose 100 MLS/HR; Start 06/19/19 at 22:30 Spironolactone (Aldactone) 50 mg BID PO Last administered on 06/23/19 09:29; Admin Dose 50 MG; Start 06/21/19 at 21:00 Pentoxifylline (Trental) 400 mg TID PO Last administered on 06/23/19at 13:11; Admin Dose 400 MG; Start 06/21/19 at 21:00 Nadolol (Corgard) 20 mg DAILY PO ; Start 06/23/19 at 11:00 Furosemide (Lasix) 40 mg BID DIURETICS PO ; Start 06/24/19 at 06:00 BENJY BRAUN Jun 23, 2019 17:40
[2019-06-23 20:00] VITALS: BP 111/70; PULSE 66; RESP 18
[2019-06-23] MEDS: CEFTRIAXONE 2 GM/50 ML (PMX) 50 ML IVPB SCH (22:37)
[2019-06-24 02:00] VITALS: BP 101/60; PULSE 77; RESP 17
[2019-06-24] MEDS: PANTOPRAZOLE 40 MG INJ IV SCH (05:53)
[2019-06-24] MEDS ORDERED: FUROSEMIDE 40 MG TAB PO SCH (06:00)
[2019-06-24 08:00] VITALS: BP 104/56; PULSE 81; RESP 18
[2019-06-24] MEDS: PENTOXIFYLLINE (SR) 400 MG TAB PO SCH ×2 (09:44→13:20)
[2019-06-24] MEDS: FOLIC ACID 1 MG TAB PO SCH (09:44)
[2019-06-24] MEDS: MULTIVITAMINS THERAPEUTIC TAB PO SCH (09:44)
[2019-06-24] MEDS: THIAMINE 100 MG TAB PO SCH (09:44)
[2019-06-24] MEDS: NADOLOL 40 MG TAB PO SCH (09:45)
[2019-06-24] MEDS: SPIRONOLACTONE 50 MG TAB PO SCH (09:45)
--- NOTE | 2019-06-24 10:33 | PN ---
Date/Time of Note Date/Time of Note DATE: 06/24/19 TIME: 10:23 Assessment/Plan VTE Prophylaxis Risk score ([facility] [place] risk: 3 SCD applied (from Ns): Yes Pharmacological prophylaxis: NA/contraindicated Pharm contraindication: liver dx, thrombocytopenia Lines/Catheters IV [facility] (from [facility] Saline Lock Urinary Cath still in place: No Assessment/Plan Hospital Course Summary Assessment and Plan: Assessment: Severe anemia EGD 06/22/2019 Grade 2/4 esophageal varices. No intervention. Mild gastritis. Rule out H. pylori infection, biopsies obtained. Otherwise normal EGD Colonoscopy 06/22/2019 Normal colonoscopy to cecum. Moderate-sized internal hemorrhoids. Presumed alcoholic liver cirrhosis with sequela -Last drink 3-7 day sago- query ETOH hepatitis DF 48.9 -Discussed alcohol cessation Thrombocytopenia Coagulopathy Abnormal UA Indirect hyperbilirubinemia- stable gallbladder u/s- The common bile duct measures 4.5 millimeter in transverse diameter.No gallstones are identified. Gallbladder polyp, 4mm -Recommend repeat imaging 6-12 months Plan: Repeat EGD in 3 months or sooner if evidence of bleeding presents High-fiber diet Repeat colonoscopy in 10 years Continue pentoxifylline x28 days Nadolol for EV prophylactics and diuretic therapy (Lasix 40mg po BID and spirolactone 50 mg po BID) Pt to f/u with GI after discharge-to review pathology results from recent EGD and to schedule repeat EGD Patient seen in collaboration with Dr. Vasques Subjective: Course reviewed with nursing staff Patient interviewed and examined All labs, imaging and other results reviewed Overnight events patient is feeling very well. No complaints of nausea/vomiting or abdominal pain. No overt signs of GI bleed hemoglobin is low yet stable. Normal renal function. Exam PHYSICAL EXAMINATION: GENERAL:Alert & oriented x 3, in no acute distress SKIN: No lesions HEAD: Normocephalic, atraumatic, no tenderness. EYES: Pupils equal reactive to light, no discharge. EARS/NOSE AND THROAT: Ears normal, nose normal. NECK: Supple, no masses. CHEST: Inspection within normal limits. CARDIOVASCULAR: Heart: Regular rate and rhythm. RESPIRATORY: Lungs clear to auscultation GASTROINTESTINAL AND LIVER: Abdomen: Soft, non tenderness, distended, no hernias, no masses, no organomegaly, ascites, no guarding, no rebound tenderness, normoactive bowel sounds. Rectal: Deferred. EXTREMITIES: No cyanosis, clubbing or edema. Result Diagram: 06/24/19 0539 06/24/19 0539 Results 24hrs Laboratory Tests Test 06/24/19 05:39 White Blood Count 4.1 L Red Blood Count 3.35 L Hemoglobin 8.1 L Hematocrit 26.7 L Mean Corpuscular Volume 79.7 L Mean Corpuscular Hemoglobin 24.2 L Mean Corpuscular Hemoglobin Concent 30.3 L Red Cell Distribution Width 20.4 H Platelet Count 47 #L Mean Platelet Volume Immature Granulocytes % 0.700 H Neutrophils % 58.7 Lymphocytes % 22.2 Monocytes % 12.5 H Eosinophils % 5.4 Basophils % 0.5 Nucleated Red Blood Cells % 0.0 Immature Granulocytes # 0.030 Neutrophils # 2.4 Lymphocytes # 0.9 Monocytes # 0.5 Eosinophils # 0.2 Basophils # 0.0 Nucleated Red Blood Cells # 0.0 Sodium Level 135 Potassium Level 3.3 L Chloride Level 105 Carbon Dioxide Level 26 Anion Gap 4 L Blood Urea Nitrogen 11 Creatinine 0.68 Est Glomerular Filtrat Rate mL/min > 60 Glucose Level 90 Calcium Level 7.5 L Phosphorus Level 3.2 Magnesium Level 1.4 L Exam/Review of Systems Exam Vitals Vital Signs Date Temp Pulse Resp B/P (MAP) Pulse Ox O2 O2 Flow FiO2 Time Delivery Rate 06/24/19 97.8 81 18 104/56 96 08:00 (72) 06/22/19 Room Air 19:42 Intake and Output 06/23/19 06/23/19 06/24/19 1515:00 23:00 07:00 IntakeIntake Total 470 ml 350 ml BalanceBalance 470 ml 350 ml Results Results 24hrs Laboratory Tests Test 06/24/19 05:39 White Blood Count 4.1 L Red Blood Count 3.35 L Hemoglobin 8.1 L Hematocrit 26.7 L Mean Corpuscular Volume 79.7 L Mean Corpuscular Hemoglobin 24.2 L Mean Corpuscular Hemoglobin Concent 30.3 L Red Cell Distribution Width 20.4 H Platelet Count 47 #L Mean Platelet Volume Immature Granulocytes % 0.700 H Neutrophils % 58.7 Lymphocytes % 22.2 Monocytes % 12.5 H Eosinophils % 5.4 Basophils % 0.5 Nucleated Red Blood Cells % 0.0 Immature Granulocytes # 0.030 Neutrophils # 2.4 Lymphocytes # 0.9 Monocytes # 0.5 Eosinophils # 0.2 Basophils # 0.0 Nucleated Red Blood Cells # 0.0 Sodium Level 135 Potassium Level 3.3 L Chloride Level 105 Carbon Dioxide Level 26 Anion Gap 4 L Blood Urea Nitrogen 11 Creatinine 0.68 Est Glomerular Filtrat Rate mL/min > 60 Glucose Level 90 Calcium Level 7.5 L Phosphorus Level 3.2 Magnesium Level 1.4 L Medications Medication Current Medications IV Flush (NS 3 ml) 3 ml PER PROTOCOL IV ; Start 06/19/19 at 16:30 Ondansetron HCl (Zofran Inj) 4 mg Q6H PRN IV NAUSEA/VOMITING; Start 06/19/19 at 16:30 Acetaminophen (Tylenol Tab) 650 mg Q6H PRN PO .PAIN 1-3 OR TEMP Last administered on 06/21/19at 22:25; Admin Dose 650 MG; Start 06/19/19 at 16:30 Acetaminophen/ Hydrocodone Bitart ([place] (5/325)) 1 tab Q6H PRN PO .MOD PAIN 4- 6; Start 06/19/19 at 16:30 Morphine Sulfate (morphine) 2 mg Q4H PRN IV .SEVERE PAIN 7-10; Start 06/19/19 at 16:30 Docusate Sodium (Colace) 100 mg Q12H PRN PO .CONSTIPATION; Start 06/19/19 at 16:30 Bisacodyl (Dulcolax) 5 mg DAILY PRN PO .CONSTIPATION; Start 06/19/19 at 16:30 Bisacodyl (Dulcolax Supp) 10 mg DAILY PRN [place] .CONSTIPATION; Start 06/19/19 at 16:30 Pantoprazole (Protonix Iv) 40 mg DAILY@06 IV Last administered on 06/24/19at 05:53; Admin Dose 40 MG; Start 06/20/19 at 06:00 Lorazepam (Ativan) 1 mg Q2H PRN IV CONTROL WITHDRAWAL SYMPTOMS; Start 06/19/19 at 20:30 Thiamine HCl (Vitamin B1) 100 mg DAILY PO Last administered on 06/24/19at 09:44; Admin Dose 100 MG; Start 06/20/19 at 09:00 Folic Acid (Folic Acid) 1 mg DAILY PO Last administered on 06/24/19at 09:44; Admin Dose 1 MG; Start 06/20/19 at 09:00 Multivitamins Therapeutic (Theragran) 1 tab DAILY PO Last administered on 06/24/19 09:44; Admin Dose 1 TAB; Start 06/19/19 at 20:30 Ceftriaxone Sodium 50 ml @ 100 mls/hr Q24H IVPB Last administered on 06/23/19 22:37; Admin Dose 100 MLS/HR; Start 06/19/19 at 22:30 Spironolactone (Aldactone) 50 mg BID PO Last administered on 06/24/19 09:45; Admin Dose 50 MG; Start 06/21/19 at 21:00 Pentoxifylline (Trental) 400 mg TID PO Last administered on 06/24/19 09:44; Admin Dose 400 MG; Start 06/21/19 at 21:00 Nadolol (Corgard) 20 mg DAILY PO Last administered on 06/24/19 09:45; Admin Dose 20 MG; Start 06/23/19 at 11:00 Furosemide (Lasix) 40 mg BID DIURETICS PO Last administered on 06/24/19at 05:56; Admin Dose 40 MG; Start 06/24/19 at 06:00 NIKKO GODOY Jun 24, 2019 10:33
[2019-06-24] MEDS ORDERED: POTASSIUM CHLORIDE (SR) 20 MEQ TAB PO STA (11:38)
--- NOTE | 2019-06-24 11:47 | PDOCDIS ---
Discharge Instructions CONDITION [id number] Patient Condition: [id number] Stable HOME CARE INSTRUCTIONS: [id number] Diet Instructions: [id number] Low Fat /Cholesterol ACTIVITY: [id number] Activity Restrictions: [id number] Slowly Increase Activity Rest between Activity Avoid heavy lifting FOLLOW UP/APPOINTMENTS Follow-up Plan Please take your medications as prescribed, see your doctor in the clinic in the next 1 week. BENJY BRAUN Jun 24, 2019 11:47
--- NOTE | 2019-06-24 11:56 | DS ---
Date/Time of Note Date/Time of Note DATE: 06/24/19 TIME: 11:52 Discharge Summary Admission/Discharge Info Admit Date/Time Jun 19, 2019 at 15:09 Discharge Date/Time Discharge Diagnosis 1. Anasarca-slowly improving, likely due to progressive liver disease/acute li eloise failure; again status post paracentesis with 2.3 L removed 2. Sympt Anemia- transfused a total of 3 units during this admission, hemoglobin presently stable 3. Etoh-counseled on cessation 4. Etoh liver dz again appreciate GI consult - status post EGD colonoscopy 5. Coagulopathy- status post FFP vitamin K earlier this admission-now stable 6. Depression?-Improved 8. Portal Htn; bb cautious use Patient Condition: Stable Procedures EGD 06/22/2019 Grade 2/4 esophageal varices. No intervention. Mild gastritis. Rule out H. pylori infection, biopsies obtained. Otherwise normal EGD Colonoscopy 06/22/2019 Normal colonoscopy to cecum. Moderate-sized internal hemorrhoids. Hospital Course Patient was admitted and seen by GI team during his hospital stay. Patient was found with anasarca, likely secondary to advanced liver disease. Patient also found with ascites and underwent paracentesis with 2.3 L of fluid removed. Patient described immediate relief in his abdominal pain symptoms. He was also placed on Aldactone and Lasix which helped control his overall anasarca and ascites as well. Patient also underwent EGD and colonoscopy that showed some Grade 2/4 esophageal varices but no intervention was required, and some internal hemorrhoids, but was stable. Patient also required PRBC transfusion during this hospital stay and after that was given the hemoglobin remained stable throughout. Patient was able to amply, tolerated p.o. diet. Patient will be discharged home today in improved condition. He was given counseling about alcohol cessation. See below for full list of discharge medications. Home Meds Active Scripts Pentoxifylline* (Pentoxifylline*) 400 Mg Tablet.sa, 400 MG PO TID, #90 2 Refills Prov:RICA BRAUNP Oscar. 06/24/19 Follow-up Plan Please take your medications as prescribed, see your doctor in the clinic in the next 1 week. Primary Care Provider [facility] Time spent on discharge: > 30 minutes Pending Labs Laboratory Tests Test 06/24/19 05:39 White Blood Count 4.1 10^3/ul (4.8-10.8) Red Blood Count 3.35 10^6/ul (4.70-6.10) Hemoglobin 8.1 g/dl (14.0-18.0) Hematocrit 26.7 % (42.0-52.0) Mean Corpuscular Volume 79.7 fl (82.0-101.0) Mean Corpuscular Hemoglobin 24.2 pg (29.0-33.0) Mean Corpuscular Hemoglobin Concent 30.3 g/dl (32.0-37.0) Red Cell Distribution Width 20.4 % (11.5-14.5) Platelet Count 47 10^3/UL (140-415) Mean Platelet Volume fl (7.4-10.4) Immature Granulocytes % 0.700 % (0.001-0.429) Neutrophils % 58.7 % (39.0-77.0) Lymphocytes % 22.2 % (15.0-51.0) Monocytes % 12.5 % (0.0-11.0) Eosinophils % 5.4 % (0.0-7.0) Basophils % 0.5 % (0.0-2.0) Nucleated Red Blood Cells % 0.0 /100WBC (0.0-0.0) Immature Granulocytes # 0.030 10^3/ul (0.0-0.031) Neutrophils # 2.4 10^3/ul (1.6-7.5) Lymphocytes # 0.9 10^3/ul (0.8-2.9) Monocytes # 0.5 10^3/ul (0.3-0.9) Eosinophils # 0.2 10^3/ul (0.0-0.5) Basophils # 0.0 10^3/ul (0.0-0.1) Nucleated Red Blood Cells # 0.0 10^3/ul (0.0-0.0) Sodium Level 135 mmol/L (135-144) Potassium Level 3.3 mmol/L (3.5-5.1) Chloride Level 105 mmol/L (97-110) Carbon Dioxide Level 26 mmol/L (21-31) Anion Gap 4 (5-13) Blood Urea Nitrogen 11 mg/dl (7-20) Creatinine 0.68 mg/dl (0.61-1.24) Est Glomerular Filtrat Rate mL/min > 60 mL/min (>60) Glucose Level 90 mg/dl (70-220) Calcium Level 7.5 mg/dl (8.4-10.2) Phosphorus Level 3.2 mg/dl (2.5-4.9) Magnesium Level 1.4 mg/dl (1.7-2.5) BENJY BRAUN Jun 24, 2019 11:55
[2019-06-24] MEDS ORDERED: MAGNESIUM SULFATE 2 GM/50 ML 50 ML IVPB ONE (12:00)
[2019-06-24 14:00] VITALS: BP 106/64; PULSE 70; RESP 20
== END 2019-06-24 16:25 | disposition home or self-care (01) | DRG 433 ==
LOC: E/R 12:51 → PP2 15:09 → EDBEDREQSVC 20:09
PROVIDERS: ADMIT Internal Medicine; ATTEND Hospitalist
PROC: 30233N1 Transfusion of Nonautologous Red Blood Cells into Peripheral Vein, Percutaneous Approach (ICD-10-PCS; 2019-06-19)
PROC: 0W9G3ZX Drainage of Peritoneal Cavity, Percutaneous Approach, Diagnostic (ICD-10-PCS; principal; 2019-06-20)
PROC: 30233K1 Transfusion of Nonautologous Frozen Plasma into Peripheral Vein, Percutaneous Approach (ICD-10-PCS; 2019-06-20)
PROC: 0DJD8ZZ Inspection of Lower Intestinal Tract, Via Natural or Artificial Opening Endoscopic (ICD-10-PCS; 2019-06-22)
PROC: 0DB68ZX Excision of Stomach, Via Natural or Artificial Opening Endoscopic, Diagnostic (ICD-10-PCS; 2019-06-22 18:00)
DX: K70.31 Alcoholic cirrhosis of liver with ascites (principal); I85.10 Secondary esophageal varices without bleeding; D68.9 Coagulation defect, unspecified; K76.6 Portal hypertension; F10.188 Alcohol abuse with other alcohol-induced disorder; K70.40 Alcoholic hepatic failure without coma; D64.9 Anemia, unspecified; F32.9 Major depressive disorder, single episode, unspecified; K29.70 Gastritis, unspecified, without bleeding; I10 Essential (primary) hypertension; K64.8 Other hemorrhoids
CPT/HCPCS: 36415; 36430; 71045; 76705; 80048; 80053; 80307; 81001; 82042; 82105; 82140; 83036; 83605; 83690; 83735; 83880; 84100; 84157; 84439; 84443; 84480; 84484; 85025; 85049; 85610; 85670; 85730; 86038; 86255; 86644; 86704; 86709; 86803; 86850; 86900; 86901; 86920; 87070; 87075; 87086; 87102; 87116; 87340; 88104; 88305; 88312; 89051; 93005; 93970; 96374; 96375; C9113; J0696; J1940; J2060; J3010; J3475; J3480; J7030; J7040; P9011; P9016; P9059